=== PATIENT | female | born 1950 ===

== ENCOUNTER 2020-03-15 09:57 | Outpatient (REF) | payer MEDICARE, SELFPAY ==
[2020-03-20 22:51] LABS: HPV 16 RNA NOT DETECTED (NOT DETECTED); HPV mRNA E6/E7 rflx Detected (Not Detected)
== END 2020-03-15 09:58 | disposition home or self-care (01) ==
LOC: HO.LAB 09:57
PROVIDERS: Visit Provider Obstetrics & Gynecology
DX: N87.0 Mild cervical dysplasia (principal); Z78.0 Asymptomatic menopausal state; Z13.820 Encounter for screening for osteoporosis
CPT/HCPCS: 87624; 87625; 88141; 88142

== ENCOUNTER 2020-04-03 10:47 | Outpatient (REF) | payer MEDICARE, SELFPAY | END 2020-04-03 10:48 | disposition home or self-care (01) | LOC: HO.LAB 10:47 | PROVIDERS: Visit Provider Obstetrics & Gynecology | DX: B97.7 Papillomavirus as the cause of diseases classified elsewhere (principal); N87.0 Mild cervical dysplasia; I10 Essential (primary) hypertension; J45.909 Unspecified asthma, uncomplicated; Z78.0 Asymptomatic menopausal state | CPT/HCPCS: 57454; 88305 ==

== ENCOUNTER → 2020-04-17 12:02 | Outpatient (BNVA) | payer MEDICARE, SELFPAY | PROVIDERS: Visit Provider Obstetrics & Gynecology | DX: B97.7 Papillomavirus as the cause of diseases classified elsewhere (principal) | CPT/HCPCS: Q3014 ==

== ENCOUNTER 2020-05-19 10:13 | Outpatient (REF) | payer MEDICARE, SELFPAY ==
[2020-05-19 12:00] LABS: MANUAL DIFF FLAG NO
[2020-05-19 12:15] LABS: Basophils Percent Auto 0.4 % (0-2); Eosinophils Absolute Auto 0.1 X10*3/uL (0.0-0.4); Eosinophils Percent Auto 1.7 % (0-4); Hematocrit 39.7 % (37-47); Imm Gran Abs Auto 0.02 X10*3/uL (0.00-0.03); Imm Gran Pct Auto 0.2 % (0.0-0.4); Lymphocytes Absolute Auto 3.2 X10*3/uL (1.2-4.9); Lymphocytes Percent Auto 37.7 % (20-40); Mean Corpuscular HGB Conc 32.7 g/dl (31.0-35.0); Mean Corpuscular Hemoglobin 29.5 pg (27.0-33.0); Mean Platelet Volume 10.4 fL (9.4-12.3); Monocytes Absolute Auto 0.6 X10*3/uL (0.1-1.2); Monocytes Percent Auto 6.8 % (2-11); Neutrophils Absolute Auto 4.5 X10*3/uL (2.0-8.3); Neutrophils Percent Auto 53.2 % (45-73); Platelet Count 260 X10*3/uL (160-400); Red Blood Count 4.41 X10*6/uL (4.20-5.50); Red Cell Distribution Width 13.4 % (11.0-16.0); White Blood Count 8.4 X10*3/uL (4.8-10.8)
== END 2020-05-19 10:14 | disposition home or self-care (01) ==
LOC: HO.LAB 10:13
PROVIDERS: PCP Internal Medicine Geriatric Medicine; Visit Provider Internal Medicine Pulmonary Disease
DX: J45.909 Unspecified asthma, uncomplicated (principal); J31.0 Chronic rhinitis; R05 Cough; Z91.09 Other allergy status, other than to drugs and biological substances
CPT/HCPCS: 36415; 82785; 85025; 86003; 99212

== ENCOUNTER 2020-05-30 09:36 | Outpatient (REF) | payer MEDICARE, SELFPAY ==
--- NOTE | 2020-05-30 09:40 | MM_ITS ---
EXAMINATION: MM SCREENING DIGITAL BREAST TOMOSYNTHESIS, BILATERAL CLINICAL INFORMATION: Screening. Asymptomatic. History of LCIS right breast. The lifetime risk of breast cancer based on the Tyrer-Cuzick Model is 37.1%. Additional annual screening with breast MRI may be of benefit in women with a score of 20% or greater. COMPARISON: Mammography: September 29, 2018 and studies dating back to July 24, 2011 TECHNIQUE: Digital breast tomosynthesis is performed in both the craniocaudal and mediolateral oblique views along with computer-aided detection (CAD). Synthesized 2D images are generated from the tomosynthesis. FINDINGS: There are scattered areas of fibroglandular density (ACR BI-RADS breast composition Category b). There are no significant masses, abnormal calcifications, or other abnormalities. Bilateral rounded densities again seen which appear smaller than on prior studies and were shown to represent cysts on ultrasound. MM/MM tomosynthesis screening BI IMPRESSION: There are no significant changes from prior study. ASSESSMENT: BI-RADS 1: Negative RECOMMENDATION: Routine annual mammography screening. This patient's information was entered into a reminder system with a target due date for their next mammogram.
== END 2020-05-30 09:37 | disposition home or self-care (01) ==
LOC: HO.MAMMO 09:36
PROVIDERS: PCP Internal Medicine Geriatric Medicine; Visit Provider Obstetrics & Gynecology
DX: Z12.31 Encounter for screening mammogram for malignant neoplasm of breast (principal)
CPT/HCPCS: 77063; 77067

== ENCOUNTER → 2020-09-13 10:27 | Outpatient (BNVA) | payer MEDICARE, MEDICAID, SELFPAY | PROVIDERS: PCP Internal Medicine Geriatric Medicine; Visit Provider Internal Medicine Pulmonary Disease | DX: R05 Cough (principal) | CPT/HCPCS: 99212 ==

== ENCOUNTER → 2020-10-25 13:47 | Outpatient (BNVA) | payer OTHER, SELFPAY | PROVIDERS: PCP Internal Medicine Geriatric Medicine; Visit Provider Internal Medicine Pulmonary Disease | DX: R05 Cough (principal) | CPT/HCPCS: 99212 ==

== ENCOUNTER 2020-11-17 12:52 | Outpatient (REF) | payer OTHER, SELFPAY ==
--- NOTE | 2020-11-17 16:51 | PFT_ITS ---
Forced vital capacity and FEV1 are both moderately decreased. FEV1/FVC ratio is normal. POF10-14 and MVV are also slightly decreased. Post bronchodilator therapy, there is small, but significant improvement in FEV1, KNI64-99, and MVV. Total lung capacity and residual volume are both moderately reduced. Diffusion capacity moderately reduced. CONCLUSION: 1. Moderately severe restrictive pulmonary disorder. 2. Mild obstructive airway disorder with significant improvement after bronchodilator therapy. 3. Clinical correlation is recommended. MD STONE Harkins/MODL / [id number]
== END 2020-11-17 12:53 | disposition home or self-care (01) ==
LOC: HO.RESP 12:52
PROVIDERS: PCP Internal Medicine Geriatric Medicine; Visit Provider Internal Medicine Pulmonary Disease
DX: J45.909 Unspecified asthma, uncomplicated (principal); J31.0 Chronic rhinitis
CPT/HCPCS: 94060; 94727; 94729; 99212

== ENCOUNTER → 2021-01-17 14:20 | Outpatient (BNVA) | payer OTHER, SELFPAY | PROVIDERS: PCP Internal Medicine Geriatric Medicine; Visit Provider Internal Medicine Pulmonary Disease | DX: J45.909 Unspecified asthma, uncomplicated (principal); R05 Cough | CPT/HCPCS: 99212 ==

== ENCOUNTER → 2021-05-01 10:29 | Outpatient (BNVA) | payer OTHER, SELFPAY | PROVIDERS: PCP Internal Medicine Geriatric Medicine; Visit Provider Internal Medicine Pulmonary Disease | DX: J45.909 Unspecified asthma, uncomplicated (principal); R05.9 Cough, unspecified | CPT/HCPCS: 99212 ==

== ENCOUNTER 2021-05-03 10:04 | Outpatient (REF) | payer OTHER, SELFPAY ==
--- NOTE | ~2021-05-03 | XR_ITS ---
EXAMINATION: XR CHEST CLINICAL INFORMATION: J45.909 - Unspecified asthma, uncomplicated COMPARISON: Chest radiographs 06/23/2018, 10/23/2017 TECHNIQUE: Frontal and lateral views of the chest are obtained. FINDINGS: The lungs are clear. There is no airspace consolidation or groundglass opacity. No hyperinflation. The costophrenic sulci are clear. There is mild coarsening of the bronchiolar markings which may be associated with asthma/bronchitis. The heart is normal in size. The hilar and mediastinal contours are normal. No visible acute bony abnormality. XR/XR chest 2V IMPRESSION: Mild coarsening bronchiolar markings. No hyperinflation, airspace consolidation, or effusion.
== END 2021-05-03 10:05 | disposition home or self-care (01) ==
LOC: HO.XRAY 10:04
PROVIDERS: PCP Internal Medicine Geriatric Medicine; Visit Provider Internal Medicine Pulmonary Disease
DX: J45.909 Unspecified asthma, uncomplicated (principal)
CPT/HCPCS: 71046

== ENCOUNTER → 2021-06-13 10:39 | Outpatient (BNVA) | payer OTHER, SELFPAY | PROVIDERS: PCP Internal Medicine Geriatric Medicine; Visit Provider Internal Medicine Pulmonary Disease | DX: R05.9 Cough, unspecified (principal) | CPT/HCPCS: 99212 ==

== ENCOUNTER 2021-06-19 08:52 | Outpatient (REF) | payer OTHER, SELFPAY ==
--- NOTE | ~2021-06-19 | MM_ITS ---
EXAMINATION: MM SCREENING DIGITAL BREAST TOMOSYNTHESIS, BILATERAL CLINICAL INFORMATION: Screening. Asymptomatic. Prior history LCIS. The lifetime risk of breast cancer based on the Tyrer-Cuzick Model is 36%. COMPARISON: Mammography: 05/30/2020, 09/29/2018, 09/10/2017 TECHNIQUE: Digital breast tomosynthesis is performed in both the craniocaudal and mediolateral oblique views along with computer-aided detection (CAD). Synthesized 2D images are generated from the tomosynthesis. FINDINGS: There are scattered areas of fibroglandular density (ACR BI-RADS breast composition Category b). There are scattered bilateral nodularity, largest central 9:00 right breast mid depth similar to prior studies. There is no developing density or interval mass or architectural abnormality. There are scattered fine and some coarse calcifications again seen. Biopsy clip marker again noted central right breast mid depth. The axilla and skin contours are unremarkable. MM/MM tomosynthesis screening BI IMPRESSION: No significant changes from prior studies. ASSESSMENT: BI-RADS 2: Benign RECOMMENDATION: 1. Routine annual mammography screening. 2. The lifetime risk of breast cancer based on the Tyrer-Cuzick Model is 36%. Additional annual adjunct screening with breast MRI may be of benefit in women with a risk score of 20% or greater. This patient's information was entered into a reminder system with a target due date for their next mammogram.
== END 2021-06-19 08:53 | disposition home or self-care (01) ==
LOC: HO.MAMMO 08:52
PROVIDERS: PCP Nurse Practitioner; Visit Provider Nurse Practitioner
DX: Z12.31 Encounter for screening mammogram for malignant neoplasm of breast (principal)
CPT/HCPCS: 77063; 77067

== ENCOUNTER 2021-06-27 09:27 | Outpatient (REF) | payer OTHER, SELFPAY ==
--- NOTE | ~2021-06-27 | CT_ITS ---
EXAMINATION: CT CHEST WITHOUT CONTRAST CLINICAL INFORMATION: Cough COMPARISON: Previous chest CT December 2019 and chest x-ray April 2021 TECHNIQUE: Multidetector volumetric CT imaging of the chest was done. Axial MIP volume rendering provided. Sagittal and coronal reformatted images were obtained. This CT examination was performed using dose optimization techniques as appropriate, variously including the following: *Automated exposure control *Adjustment of mA and/or kV according to patient size (this includes techniques or standardized protocols for targeted exams where dose is matched to indication/reason for exam; i.e. extremities or head) *Use of iterative reconstruction technique DLP: 164 mGy-cm FINDINGS: LUNGS: There is a 2 mm calcified left lower lobe nodule axial image 40 series 3. The lungs are otherwise clear. No evidence of emphysema, interstitial lung disease or bronchiectasis is seen. No endobronchial or endotracheal lesion is seen. MEDIASTINUM: There is mild coronary artery calcification. The mediastinum is otherwise normal. PLEURA: There is no pleural effusion. No pleural mass or thickening. AXILLA: No lymphadenopathy. 5 mm density in the right breast is stable. UPPER ABDOMEN: There is postsurgical change following resection of the left lobe of the liver. There are coarse calcifications in the right lobe of the liver that is stable. The gallbladder has been removed. OSSEOUS STRUCTURES: There are degenerative changes of the spine. CT/CT chest wo con IMPRESSION: Small calcified left lower lobe pulmonary nodule probably representing a calcified granuloma. Mild coronary artery calcification. Fleischner guidelines were followed.
== END 2021-06-27 09:28 | disposition home or self-care (01) ==
LOC: HO.CT 09:27
PROVIDERS: PCP Nurse Practitioner; Visit Provider Internal Medicine Pulmonary Disease
DX: R05.9 Cough, unspecified (principal)
CPT/HCPCS: 71250

== ENCOUNTER → 2021-09-10 14:30 | Outpatient (BNVA) | payer OTHER, SELFPAY | PROVIDERS: PCP Internal Medicine Geriatric Medicine | DX: N39.3 Stress incontinence (female) (male) (principal) | CPT/HCPCS: 51798; 99202 ==

== ENCOUNTER → 2021-11-01 14:59 | Outpatient (BNVA) | payer OTHER, SELFPAY | PROVIDERS: PCP Internal Medicine Geriatric Medicine | DX: N39.3 Stress incontinence (female) (male) (principal) | CPT/HCPCS: Q3014 ==

== ENCOUNTER → 2021-11-07 12:18 | Outpatient (BNVA) | payer OTHER, SELFPAY | PROVIDERS: PCP Internal Medicine Geriatric Medicine; Visit Provider Internal Medicine Pulmonary Disease | DX: Z91.09 Other allergy status, other than to drugs and biological substances (principal); R05.9 Cough, unspecified | CPT/HCPCS: 99212 ==

== ENCOUNTER 2021-11-09 12:27 | Outpatient (REF) | payer OTHER, SELFPAY ==
[2021-11-09 12:38] LABS: MANUAL DIFF FLAG NO
[2021-11-09 12:54] LABS: Basophils Percent Auto 0.6 % (0-2); Eosinophils Absolute Auto 0.2 X10*3/uL (0.0-0.4); Eosinophils Percent Auto 2.4 % (0-4); Hematocrit 38.9 % (37.0-47.0); Hemoglobin 12.5 g/dl (12.0-16.0); Imm Gran Abs Auto 0.02 X10*3/uL (0.00-0.03); Imm Gran Pct Auto 0.3 % (0.0-0.4); Lymphocytes Absolute Auto 2.8 X10*3/uL (1.2-4.9); Lymphocytes Percent Auto 39.7 % (20-40); Mean Corpuscular HGB Conc 32.1 g/dl (31.0-35.0); Mean Corpuscular Hemoglobin 29.8 pg (27.0-33.0); Mean Corpuscular Volume 92.6 fL (80.0-98.0); Mean Platelet Volume 10.1 fL (9.4-12.3); Monocytes Absolute Auto 0.6 X10*3/uL (0.1-1.2); Monocytes Percent Auto 8.6 % (2-11); Neutrophils Absolute Auto 3.5 x10*3/uL (2.0-8.3); Neutrophils Percent Auto 48.4 % (45-73); Platelet Count 240 X10*3/uL (160-400); Red Cell Distribution Width 13.1 % (11.0-16.0); White Blood Count 7.1 X10*3/uL (4.8-10.8)
== END 2021-11-09 12:28 | disposition home or self-care (01) ==
LOC: HO.LAB 12:27
PROVIDERS: PCP Internal Medicine Geriatric Medicine; Visit Provider Internal Medicine Pulmonary Disease
DX: Z91.09 Other allergy status, other than to drugs and biological substances (principal)
CPT/HCPCS: 36415; 82785; 85025; 86003

== ENCOUNTER → 2022-02-06 09:24 | Outpatient (BNVA) | payer OTHER, SELFPAY | PROVIDERS: PCP Internal Medicine Geriatric Medicine; Visit Provider Internal Medicine Pulmonary Disease | DX: J45.909 Unspecified asthma, uncomplicated (principal); R05.9 Cough, unspecified; Z91.09 Other allergy status, other than to drugs and biological substances | CPT/HCPCS: 99212 ==

== ENCOUNTER → 2022-05-24 11:27 | Outpatient (BNVA) | payer MEDICARE, MEDICAID, SELFPAY | PROVIDERS: PCP Internal Medicine Geriatric Medicine; Visit Provider Internal Medicine Pulmonary Disease | DX: J45.909 Unspecified asthma, uncomplicated (principal); Z77.22 Contact with and (suspected) exposure to environmental tobacco smoke (acute) (chronic); Z91.09 Other allergy status, other than to drugs and biological substances; Z79.899 Other long term (current) drug therapy | CPT/HCPCS: 99212 ==

== ENCOUNTER 2022-06-24 08:22 | Outpatient (REF) | payer MEDICARE, MEDICAID, SELFPAY ==
--- NOTE | ~2022-06-24 | MM_ITS ---
EXAMINATION: MM SCREENING DIGITAL BREAST TOMOSYNTHESIS, BILATERAL CLINICAL INFORMATION: Screening. Asymptomatic. The lifetime risk of breast cancer based on the Tyrer-Cuzick Model is 3%. COMPARISON: Mammography: 06/19/2021, 05/30/2020, 09/29/2018, 09/10/2017 TECHNIQUE: Digital breast tomosynthesis is performed in both the craniocaudal and mediolateral oblique views along with computer-aided detection (CAD). Synthesized 2D images are generated from the tomosynthesis. FINDINGS: There are scattered areas of fibroglandular density (ACR BI-RADS breast composition Category b). There is scattered nodularity, largest mid 9:00 right breast similar to prior studies. Other scattered smaller nodularity are decreased since 2018. There is no developing density or architectural abnormality. There are no significant masses, abnormal calcifications, or other abnormalities. Biopsy clip marker again seen central mid inner right breast. The axilla are unremarkable. No significant changes. MM/MM tomosynthesis screening BI IMPRESSION: No mammographic evidence of malignancy. ASSESSMENT: BI-RADS 2: Benign RECOMMENDATION: Routine annual mammography screening. This patient's information was entered into a reminder system with a target due date for their next mammogram.
== END 2022-06-24 08:23 | disposition home or self-care (01) ==
LOC: HO.MAMMO 08:22
PROVIDERS: PCP Internal Medicine Geriatric Medicine; Visit Provider Nurse Practitioner
DX: Z12.31 Encounter for screening mammogram for malignant neoplasm of breast (principal)
CPT/HCPCS: 77063; 77067

== ENCOUNTER 2022-11-06 09:34 | Outpatient (AMB) | payer OTHER, SELFPAY ==
--- NOTE | 2022-11-06 09:42 | A.OFFVIS_ITS ---
Intake Vital Signs 11/06/22 09:44 Height 5 ft 4 in Weight 206 lb 12.697 oz BMI 35.5 BP 138/70 Blood Pressure Location Rt brachial Position Sitting Respiration 14 Pulse 72 Pulse Source Pulse Oximeter Pulse Oximetry (%) 95 Oxygen Delivery Method Room Air Intake Visit Reasons: asthma Allergies No Known Allergies [No Known Allergies*] Allergy (Verified 11/06/22 09:42) Medication List - Last Reconciled 11/06/22 by Ros Hartmann, [employer] albuterol sulfate 90 mcg/actuation 2 puffs inhalation Q4-6H PRN 30 days amitriptyline 25 mg PO BEDTIME amlodipine 10 mg PO BEDTIME atorvastatin 40 mg PO DAILY benzonatate 200 mg PO TID PRN 30 days chlorthalidone 25 mg PO QAM diclofenac sodium 1% grams topical fluticasone propion-salmeterol 250-50 mcg/dose (Advair Diskus) 1 ea PO BID fluticasone propionate 50 mcg/actuation 1 - 2 sprays intranasal DAILY PRN ipratropium bromide 17 mcg/actuation (Atrovent HFA) 2 puffs PO QID ketotifen fumarate 0.025%(0.035%) 1 drp ophthalmic (eye) BID losartan 100 mg PO DAILY montelukast 10 mg PO BEDTIME multivitamin 1 tab PO DAILY omeprazole 40 mg PO BID tamoxifen 20 mg PO QAM tolterodine ER 4 mg PO DAILY HPI asthma HPI Details 72-year-old lady, lifetime nonsmoker, with exposure to secondhand smoke followed for asthma and environmental allergies.? After the last office visit patient stated that Dupixent. Helped for his symptoms and it was stop. She also believes that Advair is no longer helping. Patient stated only thing that helps is ProAir. She does complain of significant allergic rhinitis. She denies acute asthma exacerbation. [facility] Medical History Asthma LILIANE I (cervical intraepithelial neoplasia I) HTN (hypertension) Stress incontinence (female) (male) Family History Mother Bladder cancer Social History Alcohol intake: never Sexual orientation: Straight/Heterosexual Gender identity: Female Review of Systems Const Denies daytime sleepiness, Denies excessive sweating, Denies fatigue, Denies fever(s), Denies lethargy, Denies malaise, Denies night sweats, Denies snoring and Denies weight loss Eyes Denies blurry vision and Denies itchy eyes ENT Reports nasal congestion, Reports post nasal drip, Denies sinus pain, Reports sinus pressure and Denies other ( Thrush) Card Denies chest pain, Denies pedal edema, Denies dyspnea, Denies orthopnea and Denies paroxysmal nocturnal dyspnea Resp Denies cough, Denies hemoptysis, Denies excessive phlegm production, Denies dyspnea, Denies snoring and Denies wheezing GI Denies abdominal pain and Denies heartburn Musc Denies myalgias, Denies arthralgias and Denies joint swelling Skin/Breast Denies rash Neuro Denies memory loss and Denies seizure-like activity Psych Denies abnormal sleep pattern, Denies anxiety and Denies memory loss Endo Denies excessive sweating, Denies fatigue and Denies heat intolerance Renard/Lymph Denies easy bruising Aller/Immun Denies itchy eyes, Denies seasonal rhinorrhea and Denies wheezing Physical Exam Vital Signs: Last Vital Signs Pulse 72 11/06/22 09:44 Resp 14 11/06/22 09:44 BP 138/70 11/06/22 09:44 Pulse Ox 95 11/06/22 09:44 Oxygen Delivery Method Room Air 11/06/22 09:44 BMI result Body Mass Index 35.5 Const General: no acute distress and alert Nutritional Appearance: not obese Orientation/consciousness: Other orientation findings ( oriented) HEENT Head: Yes atraumatic Eyes General: appearance normal, both eyes and all related structures Sclerae: sclerae normal EOM: EOMs intact bilaterally Neck Neck: Yes supple Lymphatic: no lymphadenopathy noted Resp Effort & Inspection: normal respiratory effort and no use of accessory muscles Auscultation: clear to auscultation bilaterally Cardio Rate: regular rate Rhythm: regular rhythm Heart sounds: no gallops, no murmurs and no rubs Skin General skin exam: other ( warm) Extrem General: No clubbing, No cyanosis and No edema Assessment & Plan Assessment & Plan (1) Asthma: Code(s): J45.909 - Unspecified asthma, uncomplicated Plan: Dupixent, Advair, and Ventolin a not helping patient symptom. Will switch to Symbicort, ProAir, and treat with a course of prednisone. (2) Environmental allergies: Code(s): Z91.09 - Other allergy status, other than to drugs and biological substances Plan: Dupixent pneumonia controlled symptoms. Patient decided to start Dupixent. Will consider Nucala if symptoms continue to worsen. Medications: New budesonide-formoterol 160-4.5 mcg/actuation (Symbicort) 2 puffs inhalation Q12H 30 days 10.2 grams 6RF albuterol sulfate 90 mcg/actuation 2 puffs inhalation Q4-6H 30 days PRN 1 ea 6RF shortness of breath or wheezing prednisone 40 mg (2 x 20 mg) PO DAILY 5 days 10 tabs 0RF Discontinued albuterol sulfate 90 mcg/actuation Discontinued Reason: Doctor's Order 2 puffs inhalation Q4-6H 30 days PRN 8.5 grams 6RF shortness of breath or wheezing fluticasone propion-salmeterol 250-50 mcg/dose (Advair Diskus) Discontinued Reason: Doctor's Order 1 ea PO BID 60 ea 6RF Coding Level of Care Code Est Pt Level 4 (13004) Diagnoses Asthma J45.909 Environmental allergies Z91.09
[2022-11-06 09:44] VITALS: BP 138/70; PULSE 72; RESP 14; O2SAT 95; BMI 35.5
== END 2022-11-06 09:58 | disposition home or self-care (01) ==
PROVIDERS: PCP Internal Medicine Geriatric Medicine; Visit Provider Internal Medicine Pulmonary Disease
DX: J45.909 Unspecified asthma, uncomplicated (principal); Z91.09 Other allergy status, other than to drugs and biological substances
CPT/HCPCS: 99214

== ENCOUNTER → 2022-11-06 09:34 | Outpatient (BNVA) | payer OTHER, SELFPAY | PROVIDERS: PCP Internal Medicine Geriatric Medicine; Visit Provider Internal Medicine Pulmonary Disease | DX: J45.909 Unspecified asthma, uncomplicated (principal); F17.210 Nicotine dependence, cigarettes, uncomplicated; Z91.09 Other allergy status, other than to drugs and biological substances | CPT/HCPCS: 99212 ==

== ENCOUNTER 2022-11-12 09:34 | Outpatient (AMB) | payer OTHER, SELFPAY ==
--- NOTE | 2022-11-12 09:47 | MHC.OFFVIS ---
Intake Vital Signs 11/12/22 09:50 Height 5 ft 4 in Weight 216 lb BMI 37.1 BP 166/86 H Blood Pressure Location Rt brachial Position Sitting Pulse 86 Pulse Source Pulse Oximeter Pulse Oximetry (%) 97 Oxygen Delivery Method Room Air Intake Visit Reasons: CHRONIC LOW BACK PAIN Intake Note: Regnie comes in today for lower back pain, states that it has been going on for many years. States that the pain radiates down bilateral legs into feet, feels like she is unable to walk for long periods of time without feet going numb. Currently takes tylenol as needed and does feel like it helps with the pain. Has never done physical therapy, and has never received any injections. Does not use a cane or walker. Pain today 6/10. Admin Asst Required: Yes Admin Asst Language: Albanian Allergies No Known Allergies [No Known Allergies*] Allergy (Verified 11/06/22 09:42) HPI HPI Comments History of Present Illness Details Regine is a pleasant 72-year-old female who presents to the office today for evaluation and management of her chronic lower back pain. Patient reports this pain has been ongoing for greater than 10 years and she attributes it to repeated lifting of heavy objects. Patient reports pain right now a 6/10 and will become 10/10 at times with some radiation down both legs. There has been no recent imaging, she had x-rays years ago in [place] and was told that she has degenerative joint disease. She has been taking Tylenol for her pain but has not tried NSAIDs, physical therapy, acupuncture, chiropractor or aquatherapy. There have been no previous surgeries of her back, injections or attempts and neuromodulation. She reports the pain is constant throughout the day and is negatively impacting her ability to enjoy life and ability to walk. Patient reports pain into her legs, feet will go numb if she walks long distances. She does not use any assistive devices for ambulation. Patient denies red flag symptoms including loss of bowel, bladder or saddle anesthesia. In terms of muscle damage condition is described as aching, numb and throbbing. Patient denies implantable devices, pacemaker or defibrillator. Patient denies current use of alcohol, tobacco or illicit substances. Past medical history significant for degenerative disc disease of lumbar spine and asthma. [facility] Medical History Asthma LILIANE I (cervical intraepithelial neoplasia I) HTN (hypertension) Stress incontinence (female) (male) Family History Mother Bladder cancer Social History (Updated 11/12/22 @ 09:54 by Lily Berkowitz) Alcohol intake: never Patient Tobacco Use Status: Never used Tobacco Sexual orientation: Straight/Heterosexual Gender identity: Female Review of Systems Const All systems reviewed & are unremarkable except as noted in HPI and below Physical Exam Vital Signs: Last Vital Signs Pulse 86 11/12/22 09:50 BP 166/86 H 11/12/22 09:50 Pulse Ox 97 11/12/22 09:50 Oxygen Delivery Method Room Air 11/12/22 09:50 BMI result Body Mass Index 37.1 Const Other: General: awake, alert, oriented. Answers questions appropriately. Fully engaged in examination. Skin: warm, dry, intact without visible rashes or lesions. HEENT: Normocephalic. Conjuntivae clear without exudate. Sclera non-icteric. Hearing intact. Cardiac: External chest normal in appearance. Respiratory: No signs of trauma. No signs of respiratory distress. No cough, audible wheezing or stridor. Abdomen: without gross distension. Neurological: Oriented to person, place, time and situation. Thought process intact. No gait abnormalities appreciated. Psychiatric: Appropriate mood and affect. Good judgment and insight. Back/Spine/Pelvis Other: Able to stand on bilateral tiptoes and bilateral heels. Able to transition from sit to stand unassisted. Ambulates with bilaterally normal heel strike and toe off Visual inspection without gross abnormality Tender to palpation over paraspinal muscles and midline lumbar vertebrae Nontender to palpation over PSIS ROM: extension to 20 degrees. flexion to 70 degrees Strength: 5/5 BLE Sensation: intact and symmetric BLE DTR: intact and symmetric Straight leg raises with and without dorsiflexion negative bilaterally Facet loading positive bilaterally NIMO positive bilaterally Gaenslen negative bilaterally SI compression negative bilaterally Thigh thrust negative bilaterally Assessment & Plan Assessment & Plan (1) Degenerative disc disease, lumbar: Code(s): M51.36 - Other intervertebral disc degeneration, lumbar region Plan Regine is a very pleasant 72-year-old female who presented to the office today for evaluation and management of her chronic lower back pain. History, physical exam and provocative testing most consistent with lumbar spondylosis without radiculopathy. Will obtain imaging, patient denies any recent x-rays of her lumbar spine. XR lumbar spine 4V min ordered Patient has not tried NSAID's or physical therapy. Naproxen 375mg po bid PRN pain ordered PT eval and treat order placed Discussed options for treatment including diagnostic interventional testing, epidural steroid injections, peripheral nerve stimulation with Sprint, RFA and more permanent neuromodulation. Patient will follow up in the office after she has tried conservative treatment including PT and NSAIDS. If no improvement in her symptoms will plan for Fluoroscopy guided bilateral diagnostic L3, L4 DRL5 MBB with local anesthetic. All questions and concerns have been answered and patient agrees with the plan. Orders: Orders PT Evaluation and Treatment Today M51.36 - Other intervertebral disc degeneration, lumbar region XR lumbar spine 4V min Today M51.36 - Other intervertebral disc degeneration, lumbar region Medications: New naproxen do not take while using diclofenac topical gel. Take with food 375 mg PO BID PRN 30 tabs 0RF pain Coding Level of Care Code New Pt Level 4 (59723) Diagnoses Degenerative disc disease, lumbar M51.36
[2022-11-12 09:50] VITALS: BP 166/86; PULSE 86; O2SAT 97; BMI 37.1
== END 2022-11-12 10:15 | disposition home or self-care (01) ==
PROVIDERS: PCP Internal Medicine Geriatric Medicine; Visit Provider Registered Nurse Emergency
DX: M51.36 Other intervertebral disc degeneration, lumbar region (principal)
CPT/HCPCS: 99204

== ENCOUNTER → 2022-11-12 09:34 | Outpatient (BNVA) | payer OTHER, SELFPAY | PROVIDERS: PCP Internal Medicine Geriatric Medicine; Visit Provider Registered Nurse Emergency | DX: M51.36 Other intervertebral disc degeneration, lumbar region (principal) | CPT/HCPCS: 99202 ==

== ENCOUNTER 2022-11-13 08:20 | Outpatient (REF) | payer OTHER, SELFPAY | END 2022-11-13 08:21 | disposition home or self-care (01) | LOC: HO.HOSX 08:20 | PROVIDERS: Visit Provider Orthopaedic Surgery | DX: Z13.89 Encounter for screening for other disorder (principal) ==

== ENCOUNTER 2023-07-03 11:18 | Outpatient (REF) | payer OTHER, SELFPAY | END 2023-07-03 11:19 | disposition home or self-care (01) | LOC: HO.MAMMO 11:18 | PROVIDERS: PCP Internal Medicine Geriatric Medicine; Visit Provider Internal Medicine Geriatric Medicine | DX: Z12.31 Encounter for screening mammogram for malignant neoplasm of breast (principal) | CPT/HCPCS: 77063; 77067 ==

== ENCOUNTER → 2023-07-03 11:30 | Outpatient (BNV) | payer OTHER, SELFPAY | PROVIDERS: PCP Internal Medicine Geriatric Medicine; Visit Provider Radiology Diagnostic Radiology | DX: Z12.31 Encounter for screening mammogram for malignant neoplasm of breast (principal) | CPT/HCPCS: 77063; 77067 ==

== ENCOUNTER → 2023-10-23 13:45 | Outpatient (BNV) | payer OTHER, SELFPAY | PROVIDERS: PCP Internal Medicine Geriatric Medicine; Referring Provider Internal Medicine Geriatric Medicine; Visit Provider Internal Medicine Medical Oncology | DX: D05.01 Lobular carcinoma in situ of right breast (principal) | CPT/HCPCS: 99204 ==

== ENCOUNTER 2023-12-12 12:24 | Outpatient (REF) | payer OTHER, SELFPAY ==
--- NOTE | ~2023-12-12 | MM_ITS ---
EXAMINATION: BONE DENSITOMETRY CLINICAL INDICATION: Osteopenia. COMPARISON: Previous BD dated 04/08/2019 and baseline BD dated 11/28/2016. TECHNIQUE: Using a [employer] DXA System (software version: 13.1) manufactured by [employer], dual-energy x-ray absorptiometry was performed of the lumbar spine and left hip. The images are of good technical quality. Summary results are attached. FINDINGS: LEFT FEMUR, NECK: Current: BMD 1.147 g/cm2, Z-score 1.8, T-score 0.8, normal. Prior: BMD 1.117 g/cm2. Baseline: BMD 1.090 g/cm2. LEFT FEMUR, TOTAL: Current: BMD 1.072 g/cm2, Z-score 1.3, T-score 0.5, normal, 1.4% decrease from previous, 1.4% decrease from baseline (<5% change is not significant). Prior: BMD 1.087 g/cm2. Baseline: BMD 1.087 g/cm2. AP SPINE L1-L4: Current: BMD 1.254 g/cm2, Z-score 1.2, T-score 0.6, normal, 3.1% decrease from previous, 1.3% increase from baseline (<5% change is not significant). Prior: BMD 1.294 g/cm2. Baseline: BMD 1.238 g/cm2. IDENTIFIED RISK FACTORS: Early menopause, secondary osteoporosis, low calcium intake, rheumatoid arthritis. HISTORY OF FRACTURE: None listed. MEDICATIONS: Calcium supplements or multivitamin, vitamin D. MM/XR DEXA axial skeleton IMPRESSION: 1. DIAGNOSIS: Normal bone density based on the lowest T-score value of 0.5 in the total femur applying World Health Organization criteria. 2. 10-YEAR FRACTURE RISK PREDICTION, FRAX: According to the guidelines, FRAX calculation should only be performed on patients in the osteopenia bone density category. Therefore, FRAX was not performed on this patient. 3. Treatment Recommendations: NOF guidelines recommend consideration for treatment in postmenopausal women and men age 50 and older presenting with the following: -A hip or vertebral (clinical or morphometric) fracture. -T-score less than or equal to -2.5 at the femoral neck or spine after appropriate evaluation to exclude secondary causes. -Low bone mass at the hip or spine and a 10-year fracture probability by FRAX of greater than or equal to 3% for hip fracture or greater than or equal to 20% for major osteoporotic fracture based on the [place] adapted WHO algorithm. 4. Other Recommendations: All treatment decisions require clinical judgment and consideration of individual patient factors, including patient preferences, comorbidities, previous drug use, risk factors not captured in the FRAX model (e.g. frailty, falls, vitamin D deficiency, increased bone turnover, interval significant decline in bone density) and possible under or overestimation of fracture risk by FRAX. FUTURE SCAN RECOMMENDATION: People with diagnosed cases of osteoporosis or at high risk for fracture should have regular bone mineral density tests. For patients eligible for Medicare, routine testing is allowed once every 2 years. The testing frequency can be increased to one year for patients who have rapidly progressing disease, those who are receiving or discontinuing medical therapy to restore bone mass, or have additional risk factors.
== END 2023-12-12 12:25 | disposition home or self-care (01) ==
LOC: HO.MAMMO 12:24
PROVIDERS: PCP Internal Medicine Geriatric Medicine; Visit Provider Internal Medicine Medical Oncology
DX: Z13.820 Encounter for screening for osteoporosis (principal); M85.80 Other specified disorders of bone density and structure, unspecified site; Z78.0 Asymptomatic menopausal state
CPT/HCPCS: 77080

== ENCOUNTER 2024-01-27 10:42 | Outpatient (REF) | payer OTHER, SELFPAY ==
--- NOTE | ~2024-01-27 | XR_ITS ---
EXAMINATIONS: XR KNEE, RIGHT XR KNEE, LEFT CLINICAL INFORMATION: Bilateral knee pain. COMPARISON: None available. TECHNIQUES: Three views of the right knee. Three views of the left knee. FINDINGS: Right: Mild to moderate tricompartmental osteoarthritis, with joint space narrowing, sclerosis, and osteophyte formation No fracture or joint effusion appreciated. Alignment is anatomic no abnormal soft tissue calcification. Left: Mild to moderate tricompartmental osteoarthritis, with joint space narrowing, sclerosis, and osteophyte formation No fracture or joint effusion appreciated. Alignment is anatomic no abnormal soft tissue calcification. XR/XR knee LT 4V IMPRESSION: Mild to moderate bilateral osteoarthritis of the knees. Electronically signed by: Noman Best MD 01/27/2024 03:24 PM EDT
--- NOTE | ~2024-01-27 | XR_ITS ---
EXAMINATIONS: XR KNEE, RIGHT XR KNEE, LEFT CLINICAL INFORMATION: Bilateral knee pain. COMPARISON: None available. TECHNIQUES: Three views of the right knee. Three views of the left knee. FINDINGS: Right: Mild to moderate tricompartmental osteoarthritis, with joint space narrowing, sclerosis, and osteophyte formation No fracture or joint effusion appreciated. Alignment is anatomic no abnormal soft tissue calcification. Left: Mild to moderate tricompartmental osteoarthritis, with joint space narrowing, sclerosis, and osteophyte formation No fracture or joint effusion appreciated. Alignment is anatomic no abnormal soft tissue calcification. XR/XR knee RT 4V IMPRESSION: Mild to moderate bilateral osteoarthritis of the knees. Electronically signed by: Noman Best MD 01/27/2024 03:24 PM EDT RP
[2024-01-27 13:37] LABS: Alanine Aminotransferase 15 U/L (0-31); Albumin Level 3.9 g/dL (3.5-5.0); Alkaline Phosphatase 58 U/L (39-117); Anion Gap 10 (12-20); Aspartate Amino Transferase 15 U/L (5-31); Bilirubin Total 0.5 mg/dL (0.0-1.0); Blood Urea Nitrogen 22 mg/dL (9-16); Calcium 9.5 mg/dL (8.4-10.2); Carbon Dioxide 29 mmol/L (22-29); Chloride 107 mmol/L (96-108); Cholesterol 196 mg/dL (<200); Estimated Glomerular Filt Rate > 60; Glucose Random 95 mg/dL (60-115); HDL Cholesterol 42 mg/dL (>40); LDL Cholesterol Calculated 119 mg/dL (<100); Potassium 4.3 mmol/L (3.3-5.1); Sodium 142 mmol/L (135-145); Total Protein 6.8 g/dL (6.5-8.0); Triglycerides 176 mg/dL (<150)
== END 2024-01-27 10:43 | disposition home or self-care (01) ==
LOC: HO.HHCL 10:42
PROVIDERS: Visit Provider Internal Medicine Geriatric Medicine
DX: M25.561 Pain in right knee (principal); M25.562 Pain in left knee; G89.29 Other chronic pain; I10 Essential (primary) hypertension; Z79.899 Other long term (current) drug therapy
CPT/HCPCS: 36415; 73564; 80053; 80061

== ENCOUNTER 2024-04-08 11:15 | Outpatient (AMB) | payer OTHER, SELFPAY ==
--- NOTE | 2024-04-08 11:18 | A.OFFVIS_ITS ---
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 She describes her right knee pain as sharp in nature. Her pain has gotten worse over the last year in spite of continued non operative treatments. She denies any locking or giving way. She has tried Tylenol and anti-inflammatory medicines which gave her minimal relief. She would like to hold off on surgery for as long as possible. Production Editor Services: Production Editor Present Production Editor Name: CLAIRE Saleh/EMILIA Information Interpreted: clinical only Allergies No Known Allergies [No Known Allergies*] Allergy (Verified 04/08/24 11:22) Medication List - Last Reconciled 04/08/24 by Liam Ramos MD albuterol sulfate 90 mcg/actuation 2 puffs inhalation Q4-6H PRN 30 days amitriptyline 25 mg PO BEDTIME amlodipine 10 mg PO BEDTIME atorvastatin 40 mg PO DAILY budesonide-formoterol 160-4.5 mcg/actuation (Symbicort) 2 puffs inhalation Q12H 30 days chlorthalidone 25 mg PO QAM ketotifen fumarate 0.025%(0.035%) 1 drp ophthalmic (eye) BID montelukast 10 mg PO BEDTIME multivitamin 1 tab PO DAILY naproxen 375 mg PO BID PRN olmesartan 20 mg PO DAILY omeprazole 40 mg PO BID tamoxifen 20 mg PO QAM tolterodine ER 4 mg PO DAILY PFSH Medical History Asthma LILIANE I (cervical intraepithelial neoplasia I) HTN (hypertension) Stress incontinence (female) (male) Family History Mother Bladder cancer Social History (Updated 10/23/23 @ 13:54 by Jamie Gee) Household Members: None Alcohol intake: never Patient Tobacco Use Status: Never used Tobacco service: No Current occupational status: retired Sexual orientation: Straight/Heterosexual Gender identity: Female Physical Exam Vital Signs: BMI result Body Mass Index 37.1 Const Other: Well-nourished well-developed very friendly female awake alert and oriented x3 in no acute distress Extrem Other: Bilateral lower extremity examination shows good capillary refill, no skin lesions noted, normal sensation light touch Bilateral knee examination shows minimal effusions, palpable crepitus with range of motion, pain with range of motion, range of motion from -3 degrees to 115 degrees, no instability Office Procedures AMB Joint Injection/Aspiration Joint Injection/Aspiration Primary Site: right knee Prep: site was prepped using aseptic technique Injected: 40 mg of, DepoMedrol and 1% plain lidocaine Procedure: The patient tolerated the procedure well Coding - Large joint Procedure code (CPT) selection complete Results Reviewed Results Reviewed: X-rays of the patient's bilateral knee show joint space narrowing, subchondral sclerosis, no acute bony abnormalities Assessment & Plan Assessment & Plan (1) Arthritis of right knee: Code(s): M17.11 - Unilateral primary osteoarthritis, right knee Category: Medical Plan Ms. Elizondo presents with bilateral knee pains, right greater than left, due to degenerative joint disease. I had a lengthy discussion with the patient regarding the treatment options. The risks and benefits of a right knee cortisone injection were discussed at length with the patient. The patient wished to proceed. She tolerated the injection well. At this point the pat ient's left knee pain is tolerable to her. I did give her a prescription for Celebrex to help with her pain. I will see her back in 3 months' time for repeat clinical examination. Feel free to call me at any time should questions regarding her orthopedic management arise. Thank you very much for asking me to see this very friendly patient. I spent 22 minutes in reviewing the patient's records and imaging studies, seeing the patient and documenting in the medical record. Orders: Orders AMB Joint Injection/Aspiration 04/08/24 M17.11 - Unilateral primary osteoarthritis, right knee Medications: New celecoxib (Celebrex) 200 mg PO DAILY PRN 30 caps 3RF pain Coding Level of Care Code New Pt Level 3 (28226) Complex EM visit Add On G2211 Diagnoses Arthritis of right knee M17.11 CPT Codes Coding - 19921 Large joint: 15313 - Large joint ([id number])
[2024-04-08 11:22] VITALS: BMI 37.1
== END 2024-04-08 11:47 | disposition home or self-care (01) ==
PROVIDERS: PCP Internal Medicine Geriatric Medicine; Visit Provider Orthopaedic Surgery
DX: M17.11 Unilateral primary osteoarthritis, right knee (principal)
CPT/HCPCS: 20610; 99203

== ENCOUNTER → 2024-04-08 11:15 | Outpatient (BNVA) | payer OTHER, SELFPAY | PROVIDERS: PCP Internal Medicine Geriatric Medicine; Visit Provider Orthopaedic Surgery | DX: M17.11 Unilateral primary osteoarthritis, right knee (principal) | CPT/HCPCS: 20610; 99202; J1010; J2003 ==

== ENCOUNTER 2024-10-05 10:27 | Outpatient (REF) | payer OTHER, SELFPAY ==
--- OUTSIDE RECORDS SUMMARY | 2024-10-05 12:09 | XMS_ITS | Clinical Summary ---
Author Organization [employer] Address [address] [place] [address] Care Team Providers Care It Desktop Support Technician Name Role Phone Name, Nick SOMERS Primary Care Provider [phone] Allergies No known active allergies Medications albuterol (2.5 MG/3ML) 0.083% nebulizer solution Inhale 3 mL every 8 (eight) hours. 07/11/19 21 Active Diclofenac Sodium 1 % gel Apply topically every 12 (twelve) hours. 10/25/19 22 Active celecoxib (CeleBREX) 200 MG capsuleIndicati ons:Lobular carcinoma in situ (LCIS) of breast, unspecified laterality,Brian gn hypertension,On statin therapy,Chronic right-sided low back pain with right-sided sciatica TAKE 1 CAPSULE BY MOUTH ONCE DAILY NEEDED FOR BACK PAIN 30 capsule 1 08/20/19 23 Active clobetasol (Temovate) 0.05 % ointment Apply to affected area sparingly twice a day for 1 week 45 g 03/31/20 23 Active famotidine (Pepcid) 40 MG tabletIndicatio ns:Gastroesopha geal reflux disease, unspecified whether esophagitis present Take 1 tablet (40 mg) by mouth 2 times daily. 60 tablet 08/19/19 24 Active atorvastatin (Lipitor) 40 MG tablet TAKE 1 TABLET BY MOUTH AT BEDTIME 90 tablet 3 03/03/20 24 Active Multiple Vitamin (Multivitamin) tablet TAKE 1 TABLET BY MOUTH EVERY MORNING WITH FOOD 90 tablet 3 03/03/20 24 Active albuterol 108 (90 Base) MCG/ACT inhaler INHALE 2 PUFFS BY MOUTH EVERY 4 TO 6 HOURS NEEDED 8.5 g 3 05/20/19 25 Active atenolol (Tenormin) 50 MG tabletIndicatio ns:Primary hypertension TAKE 1 TABLET BY MOUTH EVERY EVENING 30 tablet 11 07/06/19 25 Active olmesartan (BENIcar) 20 MG tabletIndicatio ns:Primary hypertension TAKE 1 TABLET BY MOUTH EVERY MORNING 30 tablet 11 07/06/19 25 Active D3-1000 25 MCG (1000 UT) capsuleIndicati ons:Lobular carcinoma in situ (LCIS) of breast, unspecified laterality,Brian gn hypertension,On statin therapy,Chronic right-sided low back pain with right-sided sciatica TAKE 1 CAPSULE BY MOUTH EVERY MORNING 30 capsule 07/06/19 25 Active amitriptyline (Elavil) 25 MG tabletIndicatio ns:Chronic pain syndrome TAKE 1 TABLET BY MOUTH AT BEDTIME 90 tablet 3 08/03/19 25 Active amLODIPine (Norvasc) 10 MG tabletIndicatio ns:Primary hypertension TAKE 1/2 TABLET BY MOUTH EVERY EVENING 15 tablet 08/06/19 25 Active fluticasone-sawyer meterol (Advair) 230-21 MCG/ACT inhalerIndicati ons:COPD with asthma (CMS/[facility]) Inhale 2 puffs in the morning and at bedtime. Rinse mouth with water after use to reduce aftertaste and incidence of candidiasis. Do not swallow. 12 g 09/01/19 25 026 Active azelastine (Astelin) 0.1 % nasal sprayIndication s:Perennial allergic rhinitis Administer 1 spray into each nostril 2 times daily. Use in each nostril as directed 30 mL 09/15/19 25 026 Active fluticasone (Flonase) 50 MCG/ACT nasal sprayIndication s:Perennial allergic rhinitis Administer 2 sprays into each nostril Once per day. Shake gently. Before first use, prime pump. After use, clean tip and replace cap. 16 g 09/15/19 25 026 Active cetirizine (ZyrTEC) 10 MG tablet Take 1 tablet (10 mg) by mouth in the morning. 30 tablet 09/15/19 25 Active montelukast (Singulair) 10 MG tabletIndicatio ns:COPD with asthma (CMS/[facility]) TAKE 1 TABLET BY MOUTH EVERY EVENING 90 tablet 09/30/19 25 Active Fluticasone-Sawyer meterol 250-50 MCG/ACT aerosol powder Inhale 1 puff every 12 (twelve) hours. 025 Discontinued(D uplicate order (will not trigger notification to Pharmacy)) Dupixent 300 MG/2ML injection Inject 300 mg subQ once every two weeks. 05/24/19 025 Discontinued(T herapy completed) Atrovent HFA 17 MCG/ACT inhaler INHALE 2 PUFFS BY MOUTH FOUR TIMES DAILY 12.9 g 09/11/19 025 Discontinued(T herapy completed) ipratropium (Atrovent) 0.06 % nasal spray 12/17/19 025 Discontinued(T herapy completed) fluticasone (Flonase) 50 MCG/ACT nasal spray Administer 2 sprays into each nostril in the morning. Shake gently. Before first use, prime pump. After use, clean tip and replace cap. 16 g 12 03/11/20 025 Discontinued(R eorder (will not trigger notification to Pharmacy)) azelastine (Astelin) 0.1 % nasal spray Administer 1 spray into each nostril 2 times daily. Use in each nostril as directed 30 mL 12 03/11/20 025 Discontinued(R eorder (will not trigger notification to Pharmacy)) triamcinolone (Nasacort) 55 MCG/ACT nasal inhaler 03/06/20 025 Discontinued(T herapy completed) montelukast (Singulair) 10 MG tabletIndicatio ns:COPD with asthma ([facility]) TAKE 1 TABLET BY MOUTH EVERY EVENING 90 tablet 06/10/19 25 025 Discontinued tamoxifen (Nolvadex) 20 MG chemo tabletIndicatio ns:Lobular carcinoma in situ (LCIS) of breast, unspecified laterality TAKE 1 TABLET BY MOUTH EVERY MORNING 90 tablet 3 07/07/19 25 025 Discontinued(T herapy completed) cetirizine (ZyrTEC) 10 MG tablet TAKE 1 TABLET BY MOUTH EVERY MORNING 30 tablet 11 09/01/192 025 Discontinued(R eorder (will not trigger notification to Pharmacy)) Active Problems Problem Noted Date Diagnosed Date Perennial allergic rhinitis 01/27/2024 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 Assessment & Plan (08/19/2023 12:15 PM EDT): Patient educated I will start her on advir BID C/w albuterol PRN I prescribed also montelukast 10mg daily I refer her to pulmonology [facility] GERD (gastroesophageal reflux disease) Assessment & Plan (08/19/2023 12:16 PM EDT): I advise patient to avoid NSAIDs, spicy and acid food, I advise to eat at the same time every day, I advise to elevate the head of the bed and take medications as prescribe 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 09/20/2022 Arthritis 09/20/2022 Osteoarthritis 09/20/2022 Calcification of coronary artery 04/09/2022 Cystocele with rectocele 04/09/2022 Mixed stress and urge urinary incontinence 04/09 Gastroesophageal reflux disease without esophagi tis 06/10/2019 Vitamin D deficiency 08/26/2018 Chronic obstructive lung disease 12/08/2017 Cough 10/22/2017 Cyst of eyelid 07/16/2017 Obesity 07/16/2017 Overview (09/20/2022): Lesion Pharyngitis 04/11/2017 Tension type headache 03/11/2017 Lobular carcinoma in situ of breast 09/17/2016 Overview (09/14/2024): Lobular carcinoma in situ (LCIS) of right breast Status: Acute Assessment and plan: This is a pleasant 73 year-old lady, with Lobular Carcinoma in Situ of the right Breast, noted on a stereotactic biopsy. She had classic LCIS, there is no evidence for Pleomorphic LCIS or Atypical Hyperplasia. So reexcision was not required. Baseline labs are normal. She had a baseline bone density, in November 2016 which was normal. She initially developed headaches, which she felt were related to the tamoxifen. It was held for a while. She then resumed it in September of 2017. She has tolerated it well. Bone density was from 04/08/2019 and revealed normal bone density. She had a mammogram on 03 July 2023 which was normal. She has completed more than 5 years of tamoxifen. Unfortunately she was lost to follow-up. PLAN: I advised her to discontinue the Tamoxifen. She was advised to have an annual Pap smear and eye exam. Will repeat her bone mineral density, she is due. She will have a mammogram in June of next year. She will return in 6 months for a followup visit. All her questions were answered to her satisfaction. Thank you. Perioral dermatitis 05/11/2012 Asthma 12/04/2011 Hypertension 12/04/2011 Assessment & Plan (08/19/2023 12:17 PM EDT): Today blood pressure very high, patient is clinically asymptomatic and did not took her meds today, I advise to take them as soon as she gets home, low Na diet and f/u with PCP Neck pain 12/04/2011 Osteoarthritis of knee 12/04/2011 Resolved Problems Problem Noted Date Diagnosed Date Resolved Date Malignant neoplasm of breast 09/20/2022 09/14/2024 Encounters Date Type Department Care Team Description 09/29/2024 Refill [facility] [address] [place] [address] [phone] Nick Tijerina MD COPD with asthma ([facility]) 09/14/2024 3:15 PM EDT Office Visit [facility] [address] [place] [address] [phone] NameNick MD Perennial allergic rhinitis (Primary Dx); Hypertension, unspecified type; Encounter for screening mammogram for malignant neoplasm of breast 09/14/2024 Travel 09/13/2024 Telephone [facility] [address] [place] [address] [phone] Christin Bullock MA Chart Prep 08/31/2024 Refill [facility] [address] [place] [phone] Nick Tijerina MD COPD with asthma ([facility]) 08/31/2024 Refill [facility] [address] [place], [place] [phone] Marcy Luevano MD COPD with asthma ([facility]) 08/05/2024 Refill [facility] [address] [place] [address] Name, MD Nick Primary hypertension 08/01/2024 Refill [facility] [address] [place] [address] Nick Tijerina MD Chronic pain syndrome 07/22/2024 Telephone [facility] [address] [place] [phone] David Ibrahim [place] september recalls 07/06/2024 Refill [facility] [address] [place] [address] Name, MD Nick Lobular carcinoma in situ (LCIS) of breast, unspecified laterality from Last 3 Months Immunizations Immunization Administration Dates Next Due Influenza, IIV3, injectable 02/22/1997 Influenza, Split (incl. oscar fied surface antigen) 06/21/2013,05/11/2012 Pneumococcal Conjugate PCV 20 01/21/2022 Pneumococcal Polysaccharide PPSV23 01/21/2022,,10/18/2016 TD (adult), 2 Lf tetanus tox oid, preservative free, adsorbed 09/24/2007,07/27/1996 Tdap 01/27/2024,06/21/2013 Zoster, Recombinant 04/18/2020,02/16/2020 Family History Medical History Relation Name Comments Cancer Mother bladder Diabetes Sister Glaucoma Sister Liver disease Sister Relation Name Status Comments Mother Sister Social History Tobacco Use Types Packs/Day Years Used Date Smoking Tobacco: Never Smokeless Tobacco: Never Tobacco Cessation:Counseling Given: Not Answered Alcohol Use Standard Drinks/Week Comments Never 0 (1 standard drink = 0.6 oz pur e alcohol) Alcohol Answer Date Recorded Frequency of Alcohol Consumption Not on file 10/14/2023 Average Number of Drinks Not on file 024 Frequency of Binge Drinking Not on file 09/26 Score 0 10/14/2023 Depression Answer Date Recorded Patient Health Questionnaire-9 Score 0 10/14/2023 Patient Health Questionnaire-9 Score 0 10/14/2023 Last PHQ-9: Questionnaire Data Not on file 0 10/14/2023 Housing Stability Answer Date Recorded What is your housing situation today? I have serafin jewell 10/07/[address] you li ve. Do you have problems with any of the following? None of the above 10/07/2023 Food Insecurity Answer Date Recorded Within the past 12 months, y ou worried that your food would run out before you got money to buy more: Never True 09/14/2024 Within the past 12 months,th e food you bought just didn't last and you didn't have enough money to get more: Never True Transportation Answer Date Recorded In the past 12 months, has l ack of transportation kept you from medical appts, meetings, work or from getting things needed for daily living? No 09/14/2024 Utilities Answer Date Recorded In the past 12 months, has t he electric, gas, oil or water company threatened to shut off services in your home? No 10/07/2023 Depression Answer Date Recorded Patient Health Questionnaire-2 Score 2 09/14/2024 Internet Access Answer Date Recorded Internet Access Q1 Yes 09/14/2024 Internet Access Q2 Not on file 09/14/2024 Comments No Sex and Gender Information Value Date Recorded Sex Assigned at Female 02/25/2022 10:14 AM EDT Legal Sex Female 10:14 AM EDT Gender Identity Female 02/25/2022 10:14 AM EDT Sexual Orientation Choose not to disclose 2021 10:14 AM EDT Last Filed Vital Signs Vital Sign Reading Time Taken Comments Blood Pressure 138/65 09/14/2024 3:21 PM EDT Pulse 95 09/14/2024 3:08 PM EDT Temperature 36.6 ??C (97.8 ??F) 09/14/2024 3:08 PM ED T Respiratory Rate 12 09/14/2024 3:08 PM EDT Oxygen Saturation 94% 09/14/2024 3:08 PM EDT Inhaled Oxygen Concentration - - Weight 99 kg (218 lb 3.2 oz) 09/14/2024 3:08 PM EDT Height 162.6 cm (5' 4 ) 09/14/2024 3:08 PM EDT Body Mass Index 37.45 09/14/2024 3:08 PM EDT Plan of Treatment Upcoming Encounters Date Type Department Care Team (Late st Contact Info) Description 11/04/2024 9:15 AM EDT Office Visit [facility] [address] [place] [address] Name, [place] [address] Health Maintenance Due Date Last Done Comments CT Colonography 1950 Colonoscopy 1950 FIT 1950 FOBT 1950 Sigmoidoscopy 1950 Hepatitis C Screening 1970 RSV Patients and Patients Aged 60 years or older (1 - Risk 60-74 years 1-dose series) 2012 COVID-19 Vaccine ( season) 2023 Influenza Vaccine (Season Ended) 2024 06/21/2013, 05/11/2012, 02/22/1997 Pap Smear 01/21/2025 01/21/2022, 11/27, 11/03/2019 Mammogram 07/02/2025 07/03/2023, 05/30, 09/30/2018 Alcohol/Substance Use Screening 09/14/2025 09/14/2024 Depression Screening 09/14/2025 09/14/2024, 10/14/19 24 SDOH Screening 09/14/2025 09/14/2024 Tobacco Screening 09/14/2025 09/14/2024 Colorectal Cancer Screening 10/08/2025 FIT DNA/Cologuard 10/08/2025 10/08/2022 Cervical Cancer Screening 01/21/2027 HPV/Cotest 01/21/2027 01/21/2022, 11/27, 11/03/2019, Additional history exists Lipid Panel 01/26/2029 01/27/2024, 0306/2022, 09/27/2020 DTaP/Tdap/Td Vaccines (3 - Td or Tdap) 01/26/2034 01/27/2024, 06/21/2013, 09/24/2007, Additional history exists Zoster Vaccines Completed 04/18/2020, 02/16/2020 Pneumococcal Vaccine: 50+ Years Completed 01/21/2022, 01/21/2022, 12/08/2017, Additional history exists HIB Vaccines Aged Out No longer eligi ble based on patient's age to complete this topic HPV Vaccines Aged Out No longer eligi ble based on patient's age to complete this topic Hepatitis A Vaccines Aged Out No long er eligible based on patient's age to complete this topic Hepatitis B Vaccines Aged Out No long er eligible based on patient's age to complete this topic IPV Vaccines Aged Out No longer eligi ble based on patient's age to complete this topic Meningococcal B Vaccine Aged Out No l onger eligible based on patient's age to complete this topic Meningococcal Vaccine Aged Out No yony dorene eligible based on patient's age to complete this topic RSV under 20 months Aged Out No longe r eligible based on patient's age to complete this topic Rotavirus Vaccines Aged Out No longer eligible based on patient's age to complete this topic Goals Goal Patient Goal Type Associated Problems Recent Progress Patient-Stated? Author Record your blood pressure periodically (2-3x per week) Blood Pressure No Penny Gomez PharmD Blood Pressure < 140/90 Blood Pressure 138/65(2024 3:21 PM EDT) No Penny Gomez PharmD Procedures Procedure Name Priority Date/Time Associated Diagnosis Comments LIPID PANEL, STANDARD Routine 01/27/2024 10:48 AM EDT Primary hypertension On statin therapy BI MAMMOGRAM SCREENING TOMOSYNTHESIS BILATERAL Routine 07/03/2023 11:40 AM EST COLOGUARD COLON CANCER SCREENING (EXTERNAL RESULTS ONLY) Routine 10/08/2022 2:19 PM EDT THINPREP IMAGING PAP AND HPV MRNA E6/E7 WITH REFLEX TO HPV 16,18/45 Routine 01/21/2022 10:51 AM EDT from Last 3 Months or Most Recently Relevant to Health Maintenance Results * (ABNORMAL) Lipid Panel, Standard (01/27/2024 10:48 AM EDT) Triglycerides 176(H) <150 mg/dL [facility] Comment:Desirable Triglyceri de: less than 150 mg/dLBorderline High Triglyceride 150-199 mg/dLHigh Triglyceride: 200-499 mg/dLVery High Triglyceride: greater than or equal to 5OO mg/dL Cholesterol 196 <200 mg/dL [facility] Comment:Desirable Cholestero l: less than 200 mg/dLBorderline High Cholesterol: 200-239 mg/dLHigh Cholesterol: greater than 239 mg/dL LDL Cholesterol Calculated 119(H) <100 mg/dL [facility] Comment:Desirable LDL: less than 100 mg/dLNear Optimal/Above Optimal LDL: 110- 129 mg/dLBorderline High LDL: 130-159 mg/dLHigh LDL: 160-189 mg/dLVery High LDL: greater than or equal to 190 mg/dL HDL Cholesterol 42 >40 mg/dL [facility] Comment:Desirable HDL: great er than 40 mg/dL Note: This HDL assay may give artificially low results in patients with liver disease. Blood Venous blood specimen / Unknown 01/27/2024 10:48 AM EDT 01/27/2024 1:03 PM EDT us Nick Name LAB BLOOD ORDERABLES Final Resul t [facility] [address] [place] [address] [phone] * BI Mammogram Screening Tomosynthesis Bilateral (07/03/2023 11:40 AM EST) Anatomical Region Laterality Modality Breast Bilateral Mammography 07/03/2023 11:4 0 AM EST Narrative 07/14/2023 5:41 AM EDT ? [facility] ? [address] ?[place] [address] ? Mammography Report ? Signed ? Patient: Elizondo,Regine ?MR#: [id number] ? : 1950 ?Acct:[id number] ? Age/Sex: 72 / F ?ADM Date: 03/07/24 ? Loc: HO.MAMMO ? Attending Dr: Nick Tijerina MD ? Ordering Physician: Nick Tijerina MD ?Results: 1Negative ? Date of Service: 07/03/23 ?Follow Up: 1 Year From Orig ?? inal Mammogram ? Procedure(s): MM tomosynthesis screening BI ?? Accession Number(s): [id number] ? cc: Nick Tijerina MD ? EXAMINATION: ?? MM SCREENING DIGITAL BREAST TOMOSYNTHESIS, BILATERAL ? CLINICAL INFORMATION: ? Screening. Asymptomatic. ? COMPARISON: ?? Mammography: This study is compared with prior exams dating back to ?? 2018. ? TECHNIQUE: ?? Digital breast tomosynthesis is performed in both the craniocaudal and ?? mediolateral oblique views along with computer-aided detection (CAD). ?? Synthesized 2D images are generated from the tomosynthesis. ? FINDINGS: ?? There are scattered areas of fibroglandular density (ACR BI-RADS breast ?? composition Category b). ? There are no significant masses, abnormal calcifications, or other ?? abnormalities. ? MM/MM tomosynthesis screening BI ?? IMPRESSION: ?? No mammographic evidence of malignancy. ? ASSESSMENT: ? BI-RADS BI-RADS 1 - Negative ? RECOMMENDATION: ?? Routine annual mammography screening. ? 1 year F/U ? This examination should not preclude the clinical evaluation of a ?? suspicious palpable abnormality. ? This patient's information was entered into a reminder system with a ?? target due date for their next mammogram. ? Dictated By: ?Lynda Craft MD ? Signed By: ?<Electronically signed by Lynda Craft MD in OV> ? 07/14/23 0538 ? DD/ 1140 ? TD/TT: ? Numerical Analysis Group Manager: ? Procedure Note Donsanjeev, Image - 07/14/2023 [facility] [address] [place] [address] Mammography Report Signed Patient: Taina Elizondo#: [id number] : 3Acct:[id number] Age/Sex: 72 / FADM Date: 07/03/23 Loc: HO.MAMMO Attending Dr: Nick Tijerina MD Ordering Physician: Nick Tijerina MDResults: 1Negative Date of Service: 07/03/23Follow Up: 1 Year From Orig inal Mammogram Procedure(s): MM tomosynthesis screening BI Accession Number(s): [id number] cc: Nick Tijerina MD EXAMINATION: MM SCREENING DIGITAL BREAST TOMOSYNTHESIS, BILATERAL CLINICAL INFORMATION: Screening. Asymptomatic. COMPARISON: Mammography: This study is compared with prior exams dating back to 2019. TECHNIQUE: Digital breast tomosynthesis is performed in both the craniocaudal and mediolateral oblique views along with computer-aided detection (CAD). Synthesized 2D images are generated from the tomosynthesis. FINDINGS: There are scattered areas of fibroglandular density (ACR BI-RADS breast composition Category b). There are no significant masses, abnormal calcifications, or other abnormalities. MM/MM tomosynthesis screening BI IMPRESSION: No mammographic evidence of malignancy. ASSESSMENT: BI-RADS BI-RADS 1 - Negative RECOMMENDATION: Routine annual mammography screening. 1 year F/U This examination should not preclude the clinical evaluation of a suspicious palpable abnormality. This patient's information was entered into a reminder system with a target due date for their next mammogram. Dictated By: Lynda Craft MD Signed By: <Electronically signed by Lynda Craft MD in OV> 07/14/23 0538 DD/ 1140 TD/TT: Numerical Analysis Group Manager: Nick Tijerina MD IMG BI PROCEDURES Final Result * Cologuard Colon Cancer Screening (10/08/2022 2:19 PM EDT) Cologuard Cancer Screen Negative Comment:repeat in 3 yrs Stool 10/08/2022 2:19 PM EDT us Nick Name POINT OF CARE TEST ENTER/EDIT OR DERABLES Final Result * THINPREP TIS PAP AND HPV mRNA E6/E7 WITH REFLEX TO HPV 16,18/45 (01/21/2022 10:51 AM EDT) Clinical Information: [facility] CONVERTED [facility] COMMENT SEE COMMENT CONVERTE D [facility] LAB[facility] Comment: EXPLANATORY NOTE: ? The Pap is a screening test for cervical cancer. It is ?? not a diagnostic test and is subject to false negative ?? and false positive results. It is most reliable when a ?? satisfactory sample, regularly obtained, is submitted ?? with relevant clinical findings and history, and when ?? the Pap result is evaluated along with historic and ?? current clinical information. ?? COMMENT: This Pap test has been evaluated with computer assisted technology. CONVERTED [email or web address] Show Jumping Instructor : SEE COMMENT CONVERTED LEGACY LABS Comment: BK,CT(ASCP) CT screening location: [address] HPV nRNA E6/E7 Not Detected Not Detected CONVERTED [facility] Comment: Methodology: Trim Master Operator-Mediated Amplification This assay detects E6/E7 viral messenger RNA (mRNA) from 14 high-risk HPV types (16,18,31,33,35,39,45,51,52,56,58,59,66,68). ? Cervical sources are required for HPV testing. If a vaginal source from a patient who has had a total hysterectomy with removal of cervix was ?? submitted, please contact the testing laboratory for alternative testing options. ?? For additional information, please refer to http://education.[employer]/faq/CPK283l6 (This link if provided for information/ educational purposes only.) Interpretation/R esult: Negative for intraepithelial lesion or malignancy. CONVERTED [facility]GAC[facility] LMP: NONE GIVEN CONVERTED LEGACY LABS PATHOLOGIST: SEE COMMENT CONVE RTED LEGACY LABS Comment: Buck Smiley M.D., Direct , Board Certified in Anatomic Pathology and Cytopathology (electronic signature) Consulting Pathologist [facility] [address] [place] [phone] Prev. BX: NONE GIVEN CONVERTED LEGACY LABS Prev. PAP: LSIL/HPV NEG 11/2020 CONVERTED [facility] SOURCE: None given CONVERTED [facility] Statement Of Adequacy: SEE COMMENT CONVERTED [facility] Comment: Satisfactory for evaluation. Endocervical/transformation zone component present. 01/21/2022 10:5 1 AM EDT Tianna STARR LAB PATHOLOGY ORDERABLES Final Result CONVERTED [facility]GACY LABS from Last 3 Months or Most Recently Relevant to Health Maintenance Insurance [id number] [employer] [place] [place]) [place] [id number] [facility] [employer] ([facility] [place] [facility] STANDARD Care Teams It Desktop Support Technician Relationship Specialty Start Date End Date Name, MD Nick [address] [place] [address] PCP - General Family Medicine 09/24/16
== END 2024-10-05 10:28 | disposition home or self-care (01) ==
LOC: HO.MAMMO 10:27
PROVIDERS: PCP Internal Medicine Geriatric Medicine; Visit Provider Internal Medicine Geriatric Medicine
DX: Z12.31 Encounter for screening mammogram for malignant neoplasm of breast (principal)
CPT/HCPCS: 77063; 77067

== ENCOUNTER → 2024-10-05 11:15 | Outpatient (BNV) | payer OTHER, SELFPAY | PROVIDERS: PCP Internal Medicine Geriatric Medicine; Visit Provider Internal Medicine | DX: Z12.31 Encounter for screening mammogram for malignant neoplasm of breast (principal) | CPT/HCPCS: 77063; 77067 ==

== ENCOUNTER 2025-02-23 11:29 | Outpatient (REF) | payer OTHER, SELFPAY ==
--- NOTE | ~2025-02-23 | XR_ITS ---
EXAMINATION: XR SHOULDER 2 OR MORE VIEWS RIGHT HISTORY: Chronic right shoulder pain and decreased ROM COMPARISON: There are no prior studies available for comparison. FINDINGS: Four views of the right shoulder are submitted. Osseous mineralization is normal. There is no fracture or dislocation. The glenohumeral joint is maintained. There is mild osteoarthritis of the AC joint with osteophyte formation. The soft tissues are unremarkable. XR/XR shoulder RT min 2V IMPRESSION: Mild osteoarthritis of the AC joint. Electronically signed by: Murray Oshea MD 02/23/2025 12:10 PM EDT
--- OUTSIDE RECORDS SUMMARY | 2025-02-23 10:30 | XMS_ITS | Encounter Summary ---
Author Organization [employer] Address [address] [place] [address] Care Team Providers Care Railroad Operator Name Role Phone NameNick MD Primary Care Provider [phone] Reason for Referral * Consultation (Routine) - Closed Specialty Diagnoses / Procedures Referred By Contac t Referred To Contact Physical Therapy Diagnoses Chronic right shoulder pain NameNick MD [address] [place] [phone] Phone: tel: fax: [facility] Physical Therapy [address] [place] [address] Phone: tel: fax: Referral ID Status Reason Start Date Expiration Date V isits Requested Visits Authorized [id number] Closed Specialty Services Required 02/23/2025 02/23/2026 1 1 Reason for Visit * Reason Comments Follow-up Encounter Details Date Type Department Care Team (Late st Contact Info) Description 02/23/2025 10:30 AM EDT Office Visit [facility] [address] [place] [address] [phone] Nick Tijerina MD [address] [place] [address] [phone] Hypertension, unspecified type (Primary Dx); High cholesterol; Mild persistent asthma without complication; Allergic conjunctivitis, unspecified laterality; Chronic right shoulder pain; Vaccination refused by patient Social History Tobacco Use Types Packs/Day Years [...] your housing situation today? I have serafin fanta 10/07/[address] you li [...] not to disclose 2021 10:14 AM EDT documented as of this encounter Last Filed Vital Signs Vital Sign Reading Time Taken Comments Blood Pressure 139/75 02/23/2025 10:57 AM EDT Pulse 71 02/23/2025 10:48 AM EDT Temperature 36.3 C (97.4 F) 02/23/2025 10:48 AM EDT Respiratory Rate 14 02/23/2025 10:48 AM EDT Oxygen Saturation 95% 02/23/2025 10:48 AM EDT Inhaled Oxygen Concentration - - Weight 97.2 kg (214 lb 3.2 oz) 02/23/2025 10:48 AM EDT Height 162.6 cm (5' 4 ) 02/23/2025 10:48 AM EDT Body Mass Index 36.77 02/23/2025 10:48 AM EDT documented in this encounter Progress Notes * Nick Name, - 02/23/2025 10:30 AM EDT Subjective Patient ID: Regine Elizondo is a 74 y.o. female who presents for Follow-up. Patient comes for a follow-up visit and we discussed several issues. BP today was slightly elevated. Repeat was much better. She assures me she is using her medications as prescribed including olmesartan 20 mg a day, atenolol 50 mg a day and amlodipine 10 mg a day, she checks her blood pressure at home. She describes systolic mostly in the 130s and diastolic below 90s. She is not having any chest pains, no shortness of breath, no lower extremity edema. Patient has requested refill for albuterol that she uses as needed for cough and wheezing. She has a personal history of asthma and seasonal allergies. She admits she is not using her Arnuity and sheis encouraged to do so. We discussed the importance of preventative inhalers for treatment of asthma. She is having a few days of clear eye discharge and eye pruritus. She has requested refill for antihistamine eyedrops. She complains of several weeks of right shoulder discomfort. She does not have any swelling or redness. No history of trauma. Pain is precipitated by overhead movements of the right shoulder. Review of Systems Constitutional: Negative for chills and fever. HENT: Negative for sore throat. See HPI Respiratory: Negative for cough, shortness of breath and wheezing. Cardiovascular: Negative for chest pain, palpitations and leg swelling. Gastrointestinal: Negative for abdominal pain. Musculoskeletal: See HPI Objective Vitals: 02/23/25 1048 02/23/25 1057 BP: (!) 152/82 139/75 BP Location: Left arm Patient Position: Sitting BP Cuff Size: Adult Pulse: 71 Resp: 14 Temp: 97.4 ??F (36.3 ??C) TempSrc: Temporal SpO2: 95% Weight: 214 lb 3.2 oz (97.2 kg) Height: 5' 4 (1.626 m) Physical Exam Constitutional: Appearance: Normal appearance. Cardiovascular: Rate and Rhythm: Normal rate and regular rhythm. Heart sounds: No murmur heard. No gallop. Pulmonary: Effort: Pulmonary effort is normal. No respiratory distress. Breath sounds: Normal breath sounds. No wheezing. Musculoskeletal: Right shoulder: Tenderness present. Decreased range of motion. Left shoulder: Normal. Right lower leg: No edema. Left lower leg: No edema. Neurological: Mental Status: She is alert. Assessment/Plan Diagnoses and all orders for this visit: Hypertension, unspecified type Comments: Continue current medications. Keep checking blood pressure at home. Avoid salty foods, avoid processed foods, regular physical activity, check blood work listed below. Orders: - Comprehensive Metabolic Panel; Future High cholesterol Comments: I encouraged the patient to use her statin for primary prevention of cardiovascular disease. Check fasting blood work listed below. Orders: - Lipid Panel, Standard; Future Mild persistent asthma without complication Comments: I discussed importance of using Arnuity for prevention of asthma exacerbations I agreed to refill albuterol to be used as needed. Allergic conjunctivitis, unspecified laterality Comments: I prescribed the patient azelastine eyedrops. Chronic right shoulder pain Comments: I recommend referral to physical therapy. Evaluation with shoulder x-ray prior to physical therapy therapy. Orders: - XR Shoulder 2+ Views Right; Future - Referral to Physical Therapy; Future Vaccination refused by patient Comments: Patient refused any vaccination today. Other orders - fluticasone furoate (Arnuity Ellipta) 100 MCG/ACT inhaler; Inhale 1 puff Once per day. Rinse mouth with water after use to reduce aftertaste and incidence of candidiasis. Do not swallow. - albuterol 108 (90 Base) MCG/ACT inhaler; INHALE 2 PUFFS BY MOUTH EVERY 4 TO 6 HOURS NEEDED - azelastine (Optivar) 0.05 % ophthalmic solution; Administer 1 drop into both eyes 2 times daily. documented in this encounter Plan of Treatment Scheduled Orders Name Type Priority Associated Diagnoses Orde r Schedule Comprehensive Metabolic Panel Lab Routine Hypertension, unspecified type Expected: 02/23/2025 (Approximate), Expires: 02/23/2026 Scheduled Referrals Name Type Priority Associated Diagnoses Orde r Schedule Referral to Physical Therapy Outpatient Referral Routine Chronic right shoulder pain Expected: 02/23/2025 (Approximate), Expires: 02/23/2026 documented as of this encounter Goals Goal Patient Goal Type Associated Problems Recent Progress Patient-Stated? Author Record your blood pressure periodically (2-3x per week) Blood Pressure No Puia, Penny, PharmD Blood Pressure < 140/90 Blood Pressure 139/75(2024 10:57 AM EDT) No Puia, Penny, PharmD documented as of this encounter Procedures Procedure Name Priority Date/Time Associated Diagnosis Comments XR SHOULDER 2+ VIEWS RIGHT Routine 02/23/2025 12:05 PM EDT Chronic right shoulder pain LIPID PANEL, STANDARD Routine 02/23/2025 11:46 AM EDT High cholesterol documented in this encounter Results * XR Shoulder 2+ Views Right (02/23/2025 12:05 PM EDT) Anatomical Region Laterality Modality Upper Extremities, Shoulder Right Radi ographic Imaging 02/23/2025 12:0 5 PM EDT Narrative 02/23/2025 12:13 [place] [address] XRay Report Signed Patient: Regine Elizondo MR#: [id number] : 1950 Acct:[id number] Age/Sex: 74 / F ADM Date: 02/23/25 Loc: .[facility]X Attending Dr: Nick Tijerina MD Ordering Physician: Nick Tijerina MD Date of Service: 02/23/25 Procedure(s): XR shoulder RT min 2V Accession Number(s): [id number] cc: Nick Tijerina MD Reason for Exam: Chronic right shoulder pain and decreased ROM EXAMINATION: XR SHOULDER 2 OR MORE VIEWS RIGHT HISTORY: Chronic right shoulder pain and decreased ROM COMPARISON: There are no prior studies available for comparison. FINDINGS: Four views of the right shoulder are submitted. Osseous mineralization is normal. There is no fracture or dislocation. The glenohumeral joint is maintained. There is mild osteoarthritis of the AC joint with osteophyte formation. The soft tissues are unremarkable. XR/XR shoulder RT min 2V IMPRESSION: Mild osteoarthritis of the AC joint. Electronically signed by: Murray Oshea MD 02/23/2025 12:10 PM EDT RP Dictated By: Murray Oshea MD Signed By: <Electronically signed by Murray Oshea MD in OV> 02/23/25 1210 DD/ 1205 TD/TT: 02/23/25 1207 Rock Loader: Procedure Note Donotuseinterpreter, Image - 02/23/2025 [place] [address] XRay Report Signed Patient: Taina Elizondo#: [id number] : 1950cct:[id number] Age/Sex: 74 / FADM Date: 02/23/25 Loc: HO.HHCX Attending Dr: Nick Tijerina MD Ordering Physician: Nick Tijerina MD Date of Service: 02/23/25 Procedure(s): XR shoulder RT min 2V Accession Number(s): [id number] cc: Nick Tijerina MD Reason for Exam: Chronic right shoulder pain and decreased ROM EXAMINATION: XR SHOULDER 2 OR MORE VIEWS RIGHT HISTORY: Chronic right shoulder pain and decreased ROM COMPARISON: There are no prior studies available for comparison. FINDINGS: Four views of the right shoulder are submitted. Osseous mineralization is normal. There is no fracture or dislocation. The glenohumeral joint is maintained. There is mild osteoarthritis of the AC joint with osteophyte formation. The soft tissues are unremarkable. XR/XR shoulder RT min 2V IMPRESSION: Mild osteoarthritis of the AC joint. Electronically signed by: Murray Oshea MD 02/23/2025 12:10 PM EDT RP Dictated By: Murray Oshea MD Signed By: <Electronically signed by Murray Oshea MD in OV> 02/23/25 1210 DD/ 1205 TD/TT: 02/23/25 1207 Rock Loader: us Nick Tijerina MD IMG XR PROCEDURES Final Result * (ABNORMAL) Lipid Panel, Standard (02/23/2025 11:46 AM EDT) Triglycerides 213(H) <150 mg/dL [facility] Comment:Desirable Triglyceri de: less than 150 mg/dLBorderline High Triglyceride 150-199 mg/dLHigh Triglyceride: 200-499 mg/dLVery High Triglyceride: greater than or equal to 5OO mg/dL Cholesterol 219(H) <200 mg/dL [facility] Comment:Desirable Cholestero l: less than 200 mg/dLBorderline High Cholesterol: 200-239 mg/dLHigh Cholesterol: greater than 239 mg/dL LDL Cholesterol Calculated 134(H) <100 mg/dL [facility] Comment:Desirable LDL: less than 100 mg/dLNear Optimal/Above Optimal LDL: 110- 129 mg/dLBorderline High LDL: 130-159 mg/dLHigh LDL: 160-189 mg/dLVery High LDL: greater than or equal to 190 mg/dL HDL Cholesterol 43 >40 mg/dL [facility] Comment:Desirable HDL: great er than 40 mg/dL Note: This HDL assay may give artificially low results in patients with liver disease. Blood Venous blood specimen / Unknown 02/23/2025 11:46 AM EDT 02/23/2025 1:09 PM EDT us Nick Tijerina MD LAB BLOOD ORDERABLES Final Resul t [facility] [address] [place] [phone] documented in this encounter Visit Diagnoses Diagnosis Hypertension, unspecified type- Primary High cholesterol Pure hypercholesterolemia Mild persistent asthma without complication Allergic conjunctivitis, unspecified laterality Chronic right shoulder pain Pain in joint, shoulder region Vaccination refused by patient documented in this encounter Additional Health Concerns Assessment Noted Time PHQ-9 Depression Total Score: 0 10/14/19 24 1:45 PM EDT documented as of this encounter Care Teams Railroad Operator Relationship Specialty Start Date End Date Name, MD Nick [address] [place] [address] PCP - General Family Medicine 09/24/16 documented as of this encounter
[2025-02-23 13:13] LABS: MANUAL DIFF FLAG NO
[2025-02-23 13:39] LABS: Hematocrit 43.1 % (37.0-47.0); Hemoglobin 13.5 g/dl (12.0-16.0); Imm Gran Abs Auto 0.01 X10*3/uL (0.00-0.03); Imm Gran Pct Auto 0.1 % (0.0-0.4); Lymphocytes Absolute Auto 3.0 X10*3/uL (1.2-4.9); Mean Corpuscular HGB Conc 31.3 g/dl (31.0-35.0); Mean Corpuscular Hemoglobin 28.4 pg (27.0-33.0); Mean Corpuscular Volume 90.5 fL (80.0-98.0); NRBC Abs Auto 0.000 X10*3/uL (0.0-0.012); NRBC Pct Auto 0.0 /100WBC (0.0-0.2); Platelet Count 273 X10*3/uL (160-400); Red Blood Count 4.76 X10*6/uL (4.20-5.50); White Blood Count 7.1 X10*3/uL (4.8-10.8)
[2025-02-23 13:46] LABS: Alanine Aminotransferase 22 U/L (0-31); Albumin Level 4.3 g/dL (3.5-5.0); Alkaline Phosphatase 116 U/L (39-117); Anion Gap 10 (12-20); Aspartate Amino Transferase 33 U/L (5-31); Blood Urea Nitrogen 15 mg/dL (9-16); Calcium 9.5 mg/dL (8.4-10.2); Carbon Dioxide 32 mmol/L (22-29); Chloride 104 mmol/L (96-108); Cholesterol 219 mg/dL (<200); Estimated Glomerular Filt Rate > 60; HDL Cholesterol 43 mg/dL (>40); Potassium 4.2 mmol/L (3.3-5.1); Sodium 142 mmol/L (135-145); Total Protein 7.3 g/dL (6.5-8.0); Triglycerides 213 mg/dL (<150)
--- OUTSIDE RECORDS SUMMARY | 2025-02-23 14:51 | XMS_ITS | Clinical Summary ---
Author Organization [employer] Address [address] 7 [place] [address] Care Team Providers Care Liability Claims Representative Name Role Phone Name, Nick SOMERS Primary Care Provider [phone] Allergies No known active allergies Medications Diclofenac Sodium 1 % gel Apply topically every 12 (twelve) hours. 022 Active celecoxib (CeleBREX) 200 MG capsuleIndicati ons:Lobular carcinoma in situ (LCIS) of breast, unspecified laterality,Brian gn hypertension,On statin therapy,Chronic right-sided low back pain with right-sided sciatica TAKE 1 CAPSULE BY MOUTH ONCE DAILY NEEDED FOR BACK PAIN 30 capsule 1 023 Active clobetasol (Temovate) 0.05 % ointment Apply to affected area sparingly twice a day for 1 week 45 g 023 Active famotidine (Pepcid) 40 MG tabletIndicatio ns:Gastroesopha geal reflux disease, unspecified whether esophagitis present Take 1 tablet (40 mg) by mouth 2 times daily. 60 tablet 024 Active atenolol (Tenormin) 50 MG tabletIndicatio ns:Primary hypertension TAKE 1 TABLET BY MOUTH EVERY EVENING 30 tablet 11 025 Active olmesartan (BENIcar) 20 MG tabletIndicatio ns:Primary hypertension TAKE 1 TABLET BY MOUTH EVERY MORNING 30 tablet 11 025 Active D3-1000 25 MCG (1000 UT) capsuleIndicati ons:Lobular carcinoma in situ (LCIS) of breast, unspecified laterality,Brian gn hypertension,On statin therapy,Chronic right-sided low back pain with right-sided sciatica TAKE 1 CAPSULE BY MOUTH EVERY MORNING 30 capsule 11 Active amitriptyline (Elavil) 25 MG tabletIndicatio ns:Chronic pain syndrome TAKE 1 TABLET BY MOUTH AT BEDTIME 90 tablet 3 Active amLODIPine (Norvasc) 10 MG tabletIndicatio ns:Primary hypertension TAKE 1/2 TABLET BY MOUTH EVERY EVENING 15 tablet 11 Active azelastine (Astelin) 0.1 % nasal sprayIndication s:Perennial allergic rhinitis Administer 1 spray into each nostril 2 times daily. Use in each nostril as directed 30 mL 2025 Active fluticasone (Flonase) 50 MCG/ACT nasal sprayIndication s:Perennial allergic rhinitis Administer 2 sprays into each nostril Once per day. Shake gently. Before first use, prime pump. After use, clean tip and replace cap. 16 g 2025 Active cetirizine (ZyrTEC) 10 MG tablet Take 1 tablet (10 mg) by mouth in the morning. 30 tablet Active albuterol (2.5 MG/3ML) 0.083% nebulizer solutionIndicat ions:Exacerbati on of asthma, unspecified asthma severity, unspecified whether persistent Take 3 mL by nebulization every 8 (eight) hours. 75 mL 2 Active cyanocobalamin (Vitamin B-12) 1000 MCG tablet Take 1 tablet (1,000 mcg) by mouth Once per day. 30 tablet 2025 Active montelukast (Singulair) 10 MG tabletIndicatio ns:COPD with asthma (CMS/HCC) (HCC) TAKE 1 TABLET BY MOUTH EVERY EVENING 90 tablet 1 Active atorvastatin (Lipitor) 40 MG tablet TAKE 1 TABLET BY MOUTH AT BEDTIME 90 tablet 3 Active Multiple Vitamin (Multivitamin) tablet TAKE 1 TABLET BY MOUTH EVERY MORNING WITH FOOD 90 tablet 3 Active fluticasone furoate (Arnuity Ellipta) 100 MCG/ACT inhaler Inhale 1 puff Once per day. Rinse mouth with water after use to reduce aftertaste and incidence of candidiasis. Do not swallow. 1 each 11 025 2025 Active albuterol 108 (90 Base) MCG/ACT inhaler INHALE 2 PUFFS BY MOUTH EVERY 4 TO 6 HOURS NEEDED 8.5 g 3 Active azelastine (Optivar) 0.05 % ophthalmic solution Administer 1 drop into both eyes 2 times daily. 6 mL 2 025 2025 Active atorvastatin (Lipitor) 40 MG tablet TAKE 1 TABLET BY MOUTH AT BEDTIME 90 tablet 3 024 2024 Discontinued Multiple Vitamin (Multivitamin) tablet TAKE 1 TABLET BY MOUTH EVERY MORNING WITH FOOD 90 tablet 3 024 2024 Discontinued albuterol 108 (90 Base) MCG/ACT inhaler INHALE 2 PUFFS BY MOUTH EVERY 4 TO 6 HOURS NEEDED 8.5 g 3 025 2024 Discontinued(R eorder (will not trigger notification to Pharmacy)) fluticasone furoate (Arnuity Ellipta) 100 MCG/ACT inhaler Inhale 1 puff Once per day. Rinse mouth with water after use to reduce aftertaste and incidence of candidiasis. Do not swallow. 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 Thank you. Perioral dermatitis 05/11/2012 Mild persistent asthma without complication 11/2011 Hypertension 12/04/2011 Assessment & Plan (08/19/2023 12:17 [...] Date Malignant neoplasm of breast 09/20/2022 09/14/2024 Cough 10/22/2017 11/04/2024 Pharyngitis 04/11/2017 11/04/2024 Encounters Date Type Department Care Team Description 02/23/2025 10:30 AM EDT Office Visit [facility] [address] [place] [phone] Nick Tijerina MD Hypertension, unspecified type (Primary Dx); High cholesterol; Mild persistent asthma without complication; Allergic conjunctivitis, unspecified laterality; Chronic right shoulder pain; Vaccination refused by patient 02/23/2025 Orders Only GENERIC EXTERNAL DATA DEPARTMENT Provider, Generic External Data 02/23/2025 Travel 02/16/2025 Refill [facility] [address] [place] [phone] Nick Tijerina MD 12/29/2024 Refill [facility] [address] [place] [phone] Nick Tijerina MD COPD with asthma ([facility]) 12/03/2024 Telephone [facility] [address] [place] [address] [phone] Mike IbrahimCamargo, [place] JANUARY RECALLS from Last 3 Months Immunizations Immunization Administration Dates Next Due Influenza, IIV3, injectable 02/22/1997 Influenza, Split (incl. oscra fied surface antigen) 06/21/2013,05/11/2012 Pneumococcal Conjugate PCV [...] Mass Index 36.77 02/23/2025 10:48 AM EDT Plan of Treatment Health Maintenance Due Date Last Done Comments CT Colonography 1950 Colonoscopy 1950 FIT 1950 FOBT 1950 Sigmoidoscopy 1950 Hepatitis C Screening 1970 RSV Patients and Patients Aged 60 years or older (1 - Risk 60-74 years 1-dose series) 2012 COVID-19 Vaccine ( season) 2024 Influenza Vaccine (#1) 2024 4, 05/11/2012, 02/22/1997 Pap Smear 01/21/2025 01/21/2022, 2 08/2020, 11/03/2019 Alcohol/Substance Use Screening 09/14/2025 09/14/2024 Depression Screening 09/14/2025 09/14/2024, 10/14/19 24 SDOH Screening 09/14/2025 09/14/2024 Colorectal Cancer Screening 10/08/2025 FIT DNA/Cologuard 10/08/2025 10/08/2022 Tobacco Screening 02/23/2026 02/23/2025 Mammogram 10/05/2026 10/05/2024, 03/0 10/2023, 06/19/2021, Additional history exists Cervical Cancer Screening 01/21/2027 HPV/Cotest 01/21/2027 01/21/2022, 2 08/2020, 11/03/2019, Additional history exists Lipid Panel 02/23/2030 02/23/2025, 10/0 04/2023, 07/08/2022, Additional history exists DTaP/Tdap/Td Vaccines (3 - Td or Tdap) [...] (2-3x per week) Blood Pressure No Penny Gomez, Ciaran Blood Pressure < 140/90 Blood Pressure 139/75(2024 10:57 AM EDT) No Penny Gomez, PharmD Procedures Procedure Name Priority Date/Time Associated Diagnosis Comments XR SHOULDER 2+ VIEWS RIGHT Routine 02/23/2025 12:05 PM EDT Chronic right shoulder pain COMPREHENSIVE METABOLIC PANEL Routine 02/23/2025 11:46 AM EDT CBC WITH AUTO DIFFERENTIAL Routine 02/23/2025 11:46 AM EDT LIPID PANEL, STANDARD Routine 02/23/2025 11:46 AM EDT High cholesterol BI MAMMOGRAM SCREENING TOMOSYNTHESIS BILATERAL Routine 10/05/2024 10:30 AM EDT Encounter for screening mammogram for malignant neoplasm of breast COLOGUARD COLON CANCER SCREENING (EXTERNAL RESULTS ONLY) Routine 10/08/2022 2:19 PM EDT THINPREP IMAGING PAP AND HPV MRNA E6/E7 WITH REFLEX TO HPV 16,18/45 Routine 01/21/2022 10:51 AM EDT from Last 3 Months or Most Recently Relevant to Health Maintenance Results * XR Shoulder 2+ Views Right (02/23/2025 12:05 PM EDT) Anatomical Region Laterality Modality Upper Extremities, Shoulder Right Radi ographic Imaging 02/23/2025 12:0 5 PM EDT Narrative 02/23/2025 12:13 [place] [address] XRay Report Signed Patient: Regine Elizondo MR#: [id number] : 1950 Acct:[id number] Age/Sex: 74 / F ADM Date: 02/23/25 Loc: .[facility]HCX Attending Dr: Nick Tijerina MD Ordering Physician: Nick Tijerina MD Date of Service: 02/23/25 Procedure(s): XR shoulder RT min 2V Accession Number(s): [id number] cc: Nick Tijerina MD Reason for Exam: [...] Murray Oshea MD 02/23/2025 12:10 PM EDT Dictated By: Murray Oshea MD Signed By: <Electronically signed by Murray Oshea MD in OV> 02/23/25 1210 DD/ 1205 TD/TT: 02/23/25 1207 Weight Yardage Checker: Procedure Note Donotuseinterpreter, Image - 02/23/2025 [facility] [address] [place] [address] XRay Report Signed Patient: Taina Elizondo#: [id number] : 3Acct:[id number] Age/Sex: 74 / FADM Date: 02/23/25 Loc: [facility] Attending Dr: Nick Tijerina MD Ordering Physician: Nick Tijerina MD Date of Service: 02/23/25 Procedure(s): XR shoulder RT min 2V Accession Number(s): [id number] cc: Nick Tijerina MD Reason for Exam: [...] Murray Oshea MD 02/23/2025 12:10 PM EDT Dictated By: Murray Oshea MD Signed By: <Electronically signed by Murray Oshea MD in OV> 02/23/25 1210 DD/ 1205 TD/TT: 02/23/25 1207 Weight Yardage Checker: Nick Tijerina MD IMG XR PROCEDURES Final Result * (ABNORMAL) CBC auto differential (02/23/2025 11:46 AM EDT) White Blood Count 7.1 4.8 - 10.8 X10*3/uL [facility] Red Blood Count 4.76 4.20 - 5.50 X10*6/uL [facility] Hemoglobin 13.5 12.0 - 16.0 g/dl [facility] Hematocrit 43.1 37.0 - 47.0 % [facility] Mean Corpuscular Volume 90.5 80.0 - 98.0 fL [facility] Mean Corpuscular Hemoglobin 28.4 27.0 - 33.0 pg [facility] Mean Corpuscular HGB Conc 31.3 31.0 - 35.0 g/dl [facility] Red Cell Distribution Width 13.6 11.0 - 16.0 % [facility] Platelet Count 273 160 - 400 X10*3/uL [facility] Mean Platelet Volume 10.7 9.4 - 12.3 fL [facility] Neutrophils Percent Auto 45.4 45 - 73 % [facility] Imm Gran Pct Auto 0.1 0.0 - 0.4 % [facility] Lymphocytes Percent Auto 42.2(H) 20 - 40 % [facility] Monocytes Percent Auto 8.5 2 - 11 % [facility] Eosinophils Percent Auto 3.0 0 - 4 % [facility] Basophils Percent Auto 0.8 0 - 2 % [facility] NRBC Pct Auto 0.0 0.0 - 0.2 /100WBC [facility] Neutrophils Absolute Auto 3.2 2.0 - 8.3 x10*3/uL [facility] Imm Gran Abs Auto 0.01 0.00 - 0.03 X10*3/uL [facility] Lymphocytes Absolute Auto 3.0 1.2 - 4.9 X10*3/uL [facility] Monocytes Absolute Auto 0.6 0.1 - 1.2 X10*3/uL [facility] Eosinophils Absolute Auto 0.2 0.0 - 0.4 X10*3/uL [facility] Basophils Absolute Auto 0.1 0.0 - 0.2 X10*3/uL [facility] NRBC Abs Auto 0.000 0.0 - 0.012 X10*3/uL [facility] 02/23/2025 11:4 6 AM EDT 02/23/2025 1:09 PM EDT us Generic External Data Provider LAB BLOOD ORDERAB LES Final Result Performing Organization Address City/[facility]/ZIP Co de Phone Number [facility] [address] [place] [address] [phone] * (ABNORMAL) Lipid Panel, Standard (02/23/2025 11:46 AM EDT) Triglycerides 213(H) <150 mg/dL [facility] Comment:Desirable Triglyceri de: less than 150 mg/dLBorderline High Triglyceride 150-199 mg/dLHigh Triglyceride: 200-499 mg/dLVery High Triglyceride: greater than or equal to 5OO mg/dL Cholesterol 219(H) <200 mg/dL [facility] Comment:Desirable Cholestero l: less than 200 mg/dLBorderline High Cholesterol: 200-239 mg/dLHigh Cholesterol: greater than 239 mg/dL LDL Cholesterol Calculated 134(H) <100 mg/dL [facility] Comment:Desirable LDL: less than 100 mg/dLNear Optimal/Above Optimal LDL: 110- 129 mg/dLBorderline High LDL: 130-159 mg/dLHigh LDL: 160-189 mg/dLVery High LDL: greater than or equal to 190 mg/dL HDL Cholesterol 43 >40 mg/dL [facility] Comment:Desirable HDL: great er than 40 mg/dL Note: This HDL assay may give artificially low results in patients with liver disease. Blood Venous blood specimen / Unknown 02/23/2025 11:46 AM EDT 02/23/2025 1:09 PM EDT us Nick Name MD LAB BLOOD ORDERABLES Final Resul t Performing Organization Address [facility]/ZIP Co de Phone Number [facility] [address] [place] [address] [phone] * (ABNORMAL) Comprehensive Metabolic Panel (02/23/2025 11:46 AM EDT) Sodium 142 135 - 145 mmol/L [facility] Potassium 4.2 3.3 - 5.1 mmol/L [facility] Chloride 104 96 - 108 mmol/L [facility] Carbon Dioxide 32(H) 22 - 29 mmol/L [facility] Anion Gap 10(L) 12 - 20 [facility] Urea Nitrogen (BUN) 15 9 - 16 mg/dL [facility] Creatinine, Serum 0.77 0.5 - 1.4 mg/dL [facility] Estimated Glomerular Filt Rate >60 [facility] Comment:Chronic Kidney Disea se: Estimated GFR < 60 mL/min/[id number] Kidney Disease: Estimated GFR < 15 mL/min/1.73m2 Glucose 87 60 - 115 mg/dL [facility] Calcium 9.5 8.4 - 10.2 mg/dL [facility] Bilirubin, Total 0.6 0.0 - 1.0 mg/dL [facility] Aspartate Amino Transferase 33(H) 5 - 31 U/L [facility] Alanine Aminotransferase 22 0 - 31 U/L [facility] Total Protein 7.3 6.5 - 8.0 g/dL [facility] Albumin Level 4.3 3.5 - 5.0 g/dL [facility] Alkaline Phosphatase 116 39 - 117 U/L [facility] 02/23/2025 11:4 6 AM EDT 02/23/2025 1:09 PM EDT us Generic External Data Provider LAB BLOOD ORDERAB LES Final Result Performing Organization Address City/State/[facility] Co de Phone Number [facility] [address] [place] [phone] * BI Mammogram Screening Tomosynthesis Bilateral (10/05/2024 10:30 AM EDT) Anatomical Region Laterality Modality Breast Bilateral Mammography 10/05/2024 10:3 0 AM EDT Narrative 10/12/2024 1:00 PM EDT [facility] [address] [place] [address] Mammography Report Signed Patient: Regine Elizondo MR#: [id number] : 1950 Acct:[id number] Age/Sex: 74 / F ADM Date: 10/05/24 Loc: HO.MAMMO Attending Dr: Nick Tijerina MD Ordering Physician: Nick Tijerina MD Results: Osiris zamarripa Date of Service: 10/05/24 Follow Up: 1 Year From Orig ina Mammogram Procedure(s): MM tomosynthesis screening BI Accession Number(s): [id number] cc: Nick Tijerina MD EXAMINATION: MM SCREENING DIGITAL BREAST TOMOSYNTHESIS, BILATERAL CLINICAL INFORMATION: Screening. Asymptomatic. COMPARISON: Mammography: Comparison is made with available priors TECHNIQUE: Digital breast mammography with tomosynthesis is performed in both the craniocaudal and mediolateral oblique views along with computer-aided detection (CAD). FINDINGS: There are scattered areas of fibroglandular density (ACR BI-RADS breast composition Category b). Right marker clip. There are no significant masses, abnormal calcifications, or other abnormalities. MM/MM tomosynthesis screening BI IMPRESSION: No mammographic evidence of malignancy. ASSESSMENT: BI-RADS BI-RADS 2 - Benign Findings RECOMMENDATION: Routine annual mammography screening. 1 year F/U This examination should not preclude the clinical evaluation of a suspicious palpable abnormality. This patient's information was entered into a reminder system with a target due date for their next mammogram. Electronically signed by: Ebonie Guzman DO 10/12/2024 12:57 PM EDT Dictated By: Ebonie Guzman DO Signed By: <Electronically signed by Ebonie Guzman DO in OV> 10/12/24 1257 DD/ 1030 TD/TT: 10/05/24 1045 Weight Yardage Checker: Procedure Note Donotuseinterpreter, Image - 10/12/2024 [facility] [address] [place] [address] Mammography Report Signed Patient: Taina Elizondo#: [id number] : 1950cct:[id number] Age/Sex: 74 / FADM Date: 10/05/24 Loc: MAMMO Attending Dr: Nick Tijerina MD Ordering Physician: Name,Nick MDResults: 2Benign Fi ndings Date of Service: 10/05/24Follow Up: 1 Year From Orig inal Mammogram Procedure(s): MM tomosynthesis screening BI Accession Number(s): [id number] cc: Nick Tijerina MD EXAMINATION: MM SCREENING DIGITAL BREAST TOMOSYNTHESIS, BILATERAL CLINICAL INFORMATION: Screening. Asymptomatic. COMPARISON: Mammography: Comparison is made with available priors TECHNIQUE: Digital breast mammography with tomosynthesis is performed in both the craniocaudal and mediolateral oblique views along with computer-aided detection (CAD). FINDINGS: There are scattered areas of fibroglandular density (ACR BI-RADS breast composition Category b). Right marker clip. There are no significant masses, abnormal calcifications, or other abnormalities. MM/MM tomosynthesis screening BI IMPRESSION: No mammographic evidence of malignancy. ASSESSMENT: BI-RADS BI-RADS 2 - Benign Findings RECOMMENDATION: Routine annual mammography screening. 1 year F/U This examination should not preclude the clinical evaluation of a suspicious palpable abnormality. This patient's information was entered into a reminder system with a target due date for their next mammogram. Electronically signed by: Ebonie Guzman DO 10/12/2024 12:57 PM EDT RP Dictated By: Ebonie Guzman DO Signed By: <Electronically signed by Ebonie Guzman DO in OV> 10/12/24 1257 DD/ 1030 TD/TT: 10/05/24 1045 Weight Yardage Checker: us Nick Tijerina MD IMG BI PROCEDURES Final Result * Cologuard Colon Cancer Screening (10/08/2022 2:19 PM EDT) Cologuard Cancer Screen Negative Comment:repeat in 3 yrs Stool 10/08/2022 2:19 PM EDT us Nick Tijerina MD POINT OF CARE TEST ENTER/EDIT OR DERABLES Final Result * THINPREP TIS PAP AND HPV mRNA E6/E7 WITH REFLEX TO HPV 16,18/45 (01/21/2022 10:51 AM EDT) Clinical Information: [facility] COMMENT SEE COMMENT CONVERTE D [facility] LAB[facility] Comment: EXPLANATORY NOTE: The Pap is a screening test for cervical cancer. It is not a diagnostic test and is subject to false negative and false positive results. It is most reliable when a satisfactory sample, regularly obtained, is submitted with relevant clinical findings and history, and when the Pap result is evaluated along with historic and current clinical information. COMMENT: This Pap test has been evaluated with computer assisted technology. [facility] Internet Retailer : SEE COMMENT [facility]GAC[facility] Comment: BK,CT(ASCP) CT screening location: [address] HPV nRNA E6/E7 Not Detected Not Detected [facility] Comment: Methodology: Party Plan Demonstrator-Mediated Amplification This assay detects E6/E7 viral messenger RNA (mRNA) from 14 high-risk HPV types (16,18,31,33,35,39,45,51,52,56,58,59,66,68). Cervical sources are required for HPV testing. If a vaginal source from a patient who has had a total hysterectomy with removal of cervix was submitted, please contact the testing laboratory for alternative testing options. For additional information, please refer to http://education.Public Solution/faq/TBY314c1 (This link if provided for information/ educational purposes only.) Interpretation/R esult: Negative for intraepithelial lesion or malignancy. [facility] LMP: NONE GIVEN [facility]VERTED [facility]S PATHOLOGIST: SEE COMMENT CONVE RTED LEGACY LABS Comment: Buck Smiley M.D., Direct , Board Certified in Anatomic Pathology and Cytopathology (electronic signature) Consulting Pathologist [facility] [address] [place] [address] Prev. BX: NONE GIVEN [facility]VERTED [facility]GACY LABS Prev. PAP: LSIL/HPV NEG 11/2020 [facility] SOURCE: None given [facility] Statement Of Adequacy: SEE COMMENT [facility] Comment: Satisfactory for evaluation. Endocervical/transformation zone component present. 01/21/2022 10:5 1 AM EDT Tianna Gipson CN LAB PATHOLOGY ORDERABLES Final Result [facility] from Last 3 Months or Most Recently Relevant to Health Maintenance Insurance [facility] [employer] [place] [place]) [place] [id number] [facility] [employer] ([facility] [place] [id number] [facility] STANDARD Care Teams Liability Claims Representative Relationship Specialty Start Date End Date Name, MD Nick [address] [place] [address] PCP - General Family Medicine 09/24/16
--- OUTSIDE RECORDS SUMMARY | 2025-02-23 14:51 | XMS_ITS | Encounter Summary ---
Author Organization [employer] Address [address] [facility] [address] [place] [address] Care Team Providers Care Business Reporter Name Role Phone Name, Nick SOMERS Primary Care Provider [phone] Penny Gomez PharmD Unavailable Reason for Visit * Reason Onset Date Comments Med Refill 06/05/2023 Encounter Details Date Type Department Care Team ([facility] st Contact Info) Description 06/05/2023 Telephone [facility] [address], [place] [phone] Name, MD Nick [address] [place], [place] [phone] Med Refill Social History Tobacco Use Types Packs/Day Years Used Date Smoking Tobacco: Never Smokeless Tobacco: Never Alcohol Use Standard Drinks/Week Comments Never 0 (1 standard drink = 0.6 oz pur e alcohol) Depression Answer Date Recorded Patient Health Questionnaire-9 Score 0 09/25/2022 Housing Stability Answer Date Recorded What is your housing situation today? I have serafin jewell 02/17/[address] you li ve. Do you have problems with any of the following? None of the above 02/17/2023 Food Insecurity Answer Date Recorded Within the past 12 months, y ou worried that your food would run out before you got money to buy more: Often true 02/17/2023 Within the past 12 months,th e food you bought just didn't last and you didn't have enough money to get more: Often true Transportation Answer Date Recorded In the past 12 months, has l ack of transportation kept you from medical appts, meetings, work or from getting things needed for daily living? No 02/17/2023 Utilities Answer Date Recorded In the past 12 months, has t he electric, gas, oil or water company threatened to shut off services in your home? No 02/17/2023 Depression Answer Date Recorded Patient Health Questionnaire-2 Score 0 09/25/2022 Comments No Sex and Gender Information Value Date Recorded Sex Assigned at Female 02/25/2022 10:14 AM EDT Legal Sex Female 10:14 AM EDT Gender Identity Female 02/25/2022 10:14 AM EDT Sexual Orientation Choose not to disclose 2021 10:14 AM EDT documented as of this encounter Miscellaneous Notes * Telephone Encounter - Alta Barcenas LPN - 06/05/2023 9:26 AM EST Medication was sent to [facility] on 05/23/23 with 3 refills. * Telephone Encounter - Ting Lizama - 06/05/2023 9:19 AM EST TC from pt requesting medication refill. Medications needing refill : albuterol (Ventolin HFA) 108 (90 Base) MCG/ACT inhaler To be sent to: [facility] - [place], [place] - [address] documented in this encounter Plan of Treatment Not on file documented as of this encounter Goals Goal Patient Goal Type Associated Problems Recent Progress Patient-Stated? Author Record your blood pressure periodically (2-3x per week) Blood Pressure No Puia, Penny, PharmD Blood Pressure < 140/90 Blood Pressure 139/75(2024 10:57 AM EDT) No Puia, Penny, PharmD documented as of this encounter Visit Diagnoses Not on filedocumented in this encounter Additional Health Concerns Assessment Noted Time PHQ-9 Depression Total Score: 0 09/26/19 10:03 AM EDT documented as of this encounter Care Teams Business Reporter Relationship Specialty Start Date End Date Name, MD Nick [address] [place] [address] PCP - General Family Medicine 09/24/16 Penny Gomez PharmD [address] [place] [address] Pharmacist Internal Medicine 11/13/21 07/02/23 documented as of this encounter
--- OUTSIDE RECORDS SUMMARY | 2025-02-23 14:51 | XMS_ITS | Encounter Summary ---
Author Organization [employer] Address [address] [facility] 7t [place] [address] Care Team Providers Care Staff Electronic Warfare Officer Name Role Phone Name, Nick SOMERS Primary Care Provider [phone] Encounter Details Date Type Department Care Team ([facility] Contact Info) Description 02/23/2025 Orders Only GENERIC EXTERNAL DATA DEPARTMENT Provider, Generic External Data Social History Tobacco Use Types Packs/Day Years [...] AM EDT documented as of this encounter Plan of Treatment Not on [...] Procedure Name Priority Date/Time Associated Diagnosis Comments CBC WITH AUTO DIFFERENTIAL Routine 02/23/2025 11:46 AM EDT COMPREHENSIVE METABOLIC PANEL Routine 02/23/2025 11:46 AM EDT documented in this encounter Results * (ABNORMAL) Comprehensive Metabolic Panel (02/23/2025 11:46 AM EDT) Sodium 142 135 - 145 mmol/L [facility] Potassium 4.2 3.3 - 5.1 mmol/L [facility] Chloride 104 96 - 108 mmol/L [facility] Carbon Dioxide 32(H) 22 - 29 mmol/L [facility] Anion Gap 10(L) 12 - 20 [facility] Urea Nitrogen (BUN) 15 9 - 16 mg/dL [facility] Creatinine, Serum 0.77 0.5 - 1.4 mg/dL [facility] Estimated Glomerular Filt Rate >60 [facility] Comment:Chronic Kidney Disea se: Estimated GFR < 60 mL/min/1.24k9Pqtzct Kidney Disease: Estimated GFR < 15 mL/min/1.73m2 Glucose 87 60 - 115 mg/dL [facility] Calcium 9.5 8.4 - 10.2 mg/dL [facility] Bilirubin, Total 0.6 0.0 - 1.0 mg/dL [facility] Aspartate Amino Transferase 33(H) 5 - 31 U/L [facility] Alanine Aminotransferase 22 0 - 31 U/L [facility] Total Protein 7.3 6.5 - 8.0 g/dL [facility] Albumin Level 4.3 3.5 - 5.0 g/dL [facility] Alkaline Phosphatase 116 39 - 117 U/L [facility] 02/23/2025 11:4 6 AM EDT 02/23/2025 1:09 PM EDT us Generic External Data Provider LAB BLOOD ORDERAB LES Final Result [facility] [address] [place] [address] [phone] * (ABNORMAL) CBC auto differential (02/23/2025 11:46 AM EDT) White Blood Count 7.1 4.8 - 10.8 X10*3/uL [facility] Red Blood Count 4.76 4.20 - 5.50 X10*6/uL [facility] Hemoglobin 13.5 12.0 - 16.0 g/dl [facility] Hematocrit 43.1 37.0 - 47.0 % [facility] Mean Corpuscular Volume 90.5 80.0 - 98.0 fL [facility] Mean Corpuscular Hemoglobin 28.4 27.0 - 33.0 pg [facility] Mean Corpuscular HGB Conc 31.3 31.0 - 35.0 g/dl [facility] Red Cell Distribution Width 13.6 11.0 - 16.0 % [facility] Platelet Count 273 160 - 400 X10*3/uL [facility] Mean Platelet Volume 10.7 9.4 - 12.3 fL [facility] Neutrophils Percent Auto 45.4 45 - 73 % [facility] Imm Gran Pct Auto 0.1 0.0 - 0.4 % [facility] Lymphocytes Percent Auto 42.2(H) 20 - 40 % [facility] Monocytes Percent Auto 8.5 2 - 11 % [facility] Eosinophils Percent Auto 3.0 0 - 4 % [facility] Basophils Percent Auto 0.8 0 - 2 % [facility] NRBC Pct Auto 0.0 0.0 - 0.2 /100WBC [facility] Neutrophils Absolute Auto 3.2 2.0 - 8.3 x10*3/uL [facility] Imm Gran Abs Auto 0.01 0.00 - 0.03 X10*3/uL [facility] Lymphocytes Absolute Auto 3.0 1.2 - 4.9 X10*3/uL [facility] Monocytes Absolute Auto 0.6 0.1 - 1.2 X10*3/uL [facility] Eosinophils Absolute Auto 0.2 0.0 - 0.4 X10*3/uL [facility] Basophils Absolute Auto 0.1 0.0 - 0.2 X10*3/uL [facility] NRBC Abs Auto 0.000 0.0 - 0.012 X10*3/uL [facility] 02/23/2025 11:4 6 AM EDT 02/23/2025 1:09 PM EDT us Generic External Data Provider LAB BLOOD ORDERAB LES Final Result [facility] [address] [place] [phone] documented in this encounter Visit Diagnoses Not on filedocumented in this encounter Additional Health Concerns Assessment Noted Time PHQ-9 Depression Total Score: 0 10/14/19 24 1:45 PM EDT documented as of this encounter Care Teams Staff Electronic Warfare Officer Relationship Specialty Start Date End Date Name, MD Nick [address] [place] [address] PCP - General Family Medicine 09/24/16 documented as of this encounter
--- OUTSIDE RECORDS SUMMARY | 2025-02-23 14:51 | XMS_ITS | Encounter Summary ---
Author Organization [employer] Address [address] [facility] 7t [place] [address] Care Team Providers Care Industrial Safety Engineer Name Role Phone Name, Nick SOMERS Primary Care Provider [phone] Encounter Details Date Type Department Care Team (Latest Contact Info) Description 02/23/2025 Travel Social History Tobacco Use Types Packs/Day Years [...] documented as of this encounter Care Teams Industrial Safety Engineer Relationship Specialty Start Date End Date Name, MD Nick [address] [place] [address] PCP - General Family Medicine 09/24/16 documented as of this encounter
--- OUTSIDE RECORDS SUMMARY | 2025-02-23 14:51 | XMS_ITS | Encounter Summary ---
Author Organization [employer] Address [address] [facility] 7 [place] [address] Care Team Providers Care Color Artist Name Role Phone Name, Nick SOMERS Primary Care Provider [phone] Reason for Visit * Reason Onset Date Comments Durable Medical Equipment 02/02/2024 Encounter Details Date Type Department Care Team ([facility] Contact Info) Description 02/02/[address] [facility] MEDICINE [address] [place] [address] Name, MD Nick [address] [place] [address] Durable Medical Equipment Social History Tobacco Use Types Packs/Day Years [...] before you got money to buy more: Sometimes True 2023 Within the past 12 months,th e food you bought just didn't last and you didn't have enough money to get more: Sometimes True 10/07/2023 Transportation Answer Date Recorded In the past 12 months, has l ack of transportation kept you from medical appts, meetings, work or from getting things needed for daily living? Yes, it has kept me from medical appointments or getting medications. 10/07/2023 Utilities Answer Date Recorded In the past 12 months, has t he [employer], gas, oil or water company threatened to shut off services in your home? No 10/07/2023 Depression Answer Date Recorded Patient Health Questionnaire-2 Score 0 10/14/2023 Comments No Sex and Gender Information Value Date Recorded Sex Assigned at Female 02/25/2022 10:14 AM EDT Legal Sex Female 10:14 AM EDT Gender Identity Female 02/25/2022 10:14 AM EDT Sexual Orientation Choose not to disclose 2021 10:14 AM EDT documented as of this encounter Miscellaneous Notes * Telephone Encounter - Marissa Elliott - 02/02/2024 10:38 AM EDT Tc from pt requesting DME supply for brief pull ups size Large documented in this encounter Plan of Treatment [...] documented as of this encounter Care Teams Color Artist Relationship Specialty Start Date End Date Name, MD Nick [address] [place] [address] PCP - General Family Medicine 09/24/16 documented as of this encounter
--- OUTSIDE RECORDS SUMMARY | 2025-02-23 14:51 | XMS_ITS | Encounter Summary ---
Author Organization [employer] Address [address] [facility] 7 [place] [address] Care Team Providers Care Wind Turbine Performance Engineer Name Role Phone Name, Nick SOMERS Primary Care Provider [phone] Penny Gomez PharmD Unavailable [phone] Encounter Details Date Type Department Care Team ([facility] Contact Info) Description 11/19/2022 Abstract [facility] MEDICINE [address] [place] [address] Name, MD Nick [address] [place] [address] Social History Tobacco Use Types Packs/Day Years Used Date Smoking Tobacco: Never Smokeless Tobacco: Never Alcohol Use Standard Drinks/Week Comments Never 0 (1 standard drink = 0.6 oz pur e alcohol) Depression Answer Date Recorded Patient Health Questionnaire-9 Score 0 09/25/2022 Depression Answer Date Recorded Patient Health Questionnaire-2 Score 0 09/25/2022 Comments Unknown Sex and Gender Information Value Date Recorded [...] 10:57 AM EDT) No Penny Gomez, PharmD documented as of this encounter Visit Diagnoses Not on filedocumented in this encounter Additional Health Concerns Assessment Noted Time PHQ-9 Depression Total Score: 0 09/26/19 23 10:03 AM EDT documented as of this encounter Care Teams Wind Turbine Performance Engineer Relationship Specialty Start Date End Date Name, MD Nick [address] [place] [address] PCP - General Family Medicine 09/24/16 Penny Gomez, PharmD [address] [place] [address] Pharmacist Internal Medicine 11/13/21 07/02/23 documented as of this encounter
--- OUTSIDE RECORDS SUMMARY | 2025-02-23 14:51 | XMS_ITS | Encounter Summary ---
Author Organization [employer] Address [address] [place] [address] 7 [place] [address] Care Team Providers Care Preform Machine Operator Name Role Phone Name, Nick SOMERS Primary Care Provider [phone] Penny Gomez PharmD Unavailable Encounter Details Date Type Department Care Team (Latest Contact Info) Description 07/30/2018 Abstract [facility] CONVERSIONS Dental, Provider, DDS Social History Tobacco Use Types Packs/Day Years Used Date Smoking Tobacco: Never Assessed Comments Unknown Sex and Gender Information Value Date Recorded Sex Assigned at Female 02/25/2022 10:14 AM EDT Legal Sex Female 10:14 AM EDT Gender Identity Female 02/25/2022 10:14 AM EDT Sexual Orientation Choose not to disclose 2021 10:14 AM EDT documented as of this encounter Plan of Treatment Not on file documented as of this encounter Visit Diagnoses Not on filedocumented in this encounter Care Teams Preform Machine Operator Relationship Specialty Start Date End Date Name, MD Nick [address] [place] [address] PCP - General Family Medicine 09/24/16 Penny Gomez, PharmD [address] [place] [address] Pharmacist Internal Medicine 11/13/21 07/02/23 documented as of this encounter
--- OUTSIDE RECORDS SUMMARY | 2025-02-23 14:51 | XMS_ITS | Encounter Summary ---
Author Organization [employer] Address [address] [place] [address] [address] [place] [address] Care Team Providers Care Urgent Care Nurse Practitioner Name Role Phone Name, Nick SOMERS Primary Care Provider [phone] Penny Gomez PharmD Unavailable Encounter Details Date Type Department Care Team (Latest Contact Info) Description 03/01/2020 Abstract [facility] CONVERSIONS Dental, Provider, DDS Social History Tobacco [...] on filedocumented in this encounter Care Teams Urgent Care Nurse Practitioner Relationship Specialty Start Date End Date Name, MD Nick [address] [place] [address] PCP - General Family Medicine 09/24/16 Penny Gomez, PharmD [address] [place] [address] Pharmacist Internal Medicine 11/13/21 07/02/23 documented as of this encounter
--- OUTSIDE RECORDS SUMMARY | 2025-02-23 14:51 | XMS_ITS | Encounter Summary ---
Author Organization [employer] Address [address] [facility] 7 [place] [address] Care Team Providers Care Developer Advisor Name Role Phone Name, Nick SOMERS Primary Care Provider [phone] Reason for Visit * Reason Onset Date Comments Call Back Request 11/05/2023 Encounter Details Date Type Department Care Team ([facility] Contact Info) Description 11/05/2023 Telephone [facility] MEDICINE [address] [place] [address] Name, MD Nick [address] [place] [address] Call Back Request Social History Tobacco Use Types Packs/Day Years [...] the past 12 months, has t he [employer], gas, oil or water [employer] threatened to shut off services in your [...] encounter Miscellaneous Notes * Telephone Encounter - Adriana Aguilar RN - 11/05/2023 10:50 AM EDT Can you please review and advise for below request. * Telephone Encounter - Daniel Irene - 11/05/2023 10:02 AM EDT Tc patient calling to request the status of paperwork's that was sent from [facility] states has been almost a month and still not been filled out by the provider and faxed back to [facility] documented in this encounter Plan of Treatment [...] documented as of this encounter Care Teams Developer Advisor Relationship Specialty Start Date End Date Name, MD Nick [address] [place] [address] PCP - General Family Medicine 09/24/16 documented as of this encounter
--- OUTSIDE RECORDS SUMMARY | 2025-02-23 14:51 | XMS_ITS | Encounter Summary ---
Author Organization [employer] Address [address] [facility] 7t [place] [address] Care Team Providers Care Cumulative Effects Analyst Name Role Phone Name, Nick SOMERS Primary Care Provider [phone] Encounter Details Date Type Department Care Team ([facility] Contact Info) Description 11/06/2023 Telephone [facility] MEDICINE [address] [place] [address] Name, MD Nick [address] [place] [address] Social History Tobacco Use Types Packs/Day Years [...] Telephone Encounter - Adriana Aguilar RN - 11/06/2023 11:27 AM EDT Please review and advise for below request, pt. [facility] / pt. Send documents for sign. * Telephone Encounter - Marissa Elliott - 11/06/2023 11:06 AM EDT Tc from pt requesting a call back regarding status on some document pcp had to sign for [facility] . States had spoken with pcp on last visit. documented in this encounter Plan of Treatment [...] documented as of this encounter Care Teams Cumulative Effects Analyst Relationship Specialty Start Date End Date Name, MD Nick [address] [place] [address] PCP - General Family Medicine 09/24/16 documented as of this encounter
--- OUTSIDE RECORDS SUMMARY | 2025-02-23 14:51 | XMS_ITS | Encounter Summary ---
Author Organization [employer] Address [address] [facility] 7 [place] [address] Care Team Providers Care Enterprise Sales Executive Name Role Phone Name, Nick SOMERS Primary Care Provider [phone] Reason for Visit * Reason Onset Date Comments Durable Medical Equipment 02/06/2024 Encounter Details Date Type Department Care Team ([facility] Contact Info) Description 02/06/2024 Telephone [facility] MEDICINE [address] [place] [address] Name, MD Nick [address] [place] [address] Durable Medical Equipment Social History Tobacco Use [...] the past 12 months, has t he [employer], gas, oil or water [employer] threatened to shut off services in your [...] * Telephone Encounter - Marissa Elliott - 02/26/2024 12:07 PM EDT Tc from [place] with [facility] insurance requesting status on DME request pt made on 02/02/24 and 02/06/24. States pt urgently needs pull ups size large. Best contact # [phone]. * Telephone Encounter - Daniel Irene - 02/06/2024 12:13 PM EDT Tc from patient calling to request the following DME Pull-ups size Large Shower bench And to be faxed to [facility] at [phone] documented in this encounter Plan of Treatment Not on file documented as of this encounter Goals Goal Patient Goal Type Associated Problems Recent Progress Patient-Stated? Author Record your blood pressure periodically (2-3x per week) Blood Pressure No Puia, Penny, PharmD Blood Pressure < 140/90 Blood Pressure 139/75(2024 10:57 AM EDT) No Penny Gomez PharmD documented as of this encounter Visit Diagnoses Not on filedocumented in this encounter Additional Health Concerns Assessment Noted Time PHQ-9 Depression Total Score: 0 10/14/19 24 1:45 PM EDT documented as of this encounter Care Teams Enterprise Sales Executive Relationship Specialty Start Date End Date Name, MD Nick [address] [place] [address] PCP - General Family Medicine 09/24/16 documented as of this encounter
== END 2025-02-23 11:30 | disposition home or self-care (01) ==
LOC: HO.HHCX 11:29
PROVIDERS: Internal Medicine Medical Oncology; PCP Internal Medicine Geriatric Medicine; Visit Provider Internal Medicine Geriatric Medicine
DX: Z13.220 Encounter for screening for lipoid disorders (principal); M25.511 Pain in right shoulder; G89.29 Other chronic pain; D05.01 Lobular carcinoma in situ of right breast; Z13.6 Encounter for screening for cardiovascular disorders
CPT/HCPCS: 36415; 73030; 80053; 80061; 85025

== ENCOUNTER → 2025-02-23 11:49 | Outpatient (BNV) | payer OTHER, SELFPAY | PROVIDERS: PCP Internal Medicine Geriatric Medicine; Visit Provider Radiology Diagnostic Radiology | DX: M19.011 Primary osteoarthritis, right shoulder (principal) | CPT/HCPCS: 73030 ==